=== PATIENT | male | born 1960 | race Caucasian/White ===

== ENCOUNTER 2022-01-23 02:21 | Day surgery (SDC) | payer BC, SELFPAY ==
[2022-01-04 14:44] VITALS: BMI 26.6
[2022-01-23 12:10] LABS: Glucose Point of Care 146 mg/dl (65-105)
[2022-01-23 12:13] VITALS: BP 145/80; PULSE 75; RESP 16; TEMP 36.2; O2SAT 100; BMI 27.1
--- NOTE | 2022-01-23 12:17 | WPDANESEPPF ---
Anes - Initial Pre Proc Eval Procedure: Operation Date: 01/23/22 13:30 Proposed Procedures p Esophagogastroduodenoscopy & Colonoscopy - Hero Stewart MD Date/Time: 01/23/22 12:17 Surgeon: Hero Stewart MD Pre Op Diagnosis: MERT and weight loss Patient Data Age: 61 Gender: M Height: 1.73 m Weight: 80.9 kg Last Vital Signs Temp 97.1 F L 01/23/22 12:13 Pulse 75 01/23/22 12:13 Resp 16 01/23/22 12:13 BP 145/80 H 01/23/22 12:13 Pulse Ox 100 01/23/22 12:13 O2 Del Method Room Air 01/23/22 12:13 Allergies Allergy/AdvReac Type Severity Reaction Status Date / Time No Known Allergies Allergy Mild Verified 01/23/22 12:12 Home Medications Medication Instructions Recorded Confirmed Type glimepiride 2 mg tablet 2 mg PO BID #180 tabs 08/12/21 01/11/22 Rx metformin 500 mg tablet,extended 2,000 mg PO DAILY #360 tabs 08/12/21 01/11/22 Rx release 24 hr amlodipine 10 mg tablet 10 mg PO DAILY #90 tabs 09/06/21 01/11/22 Rx levothyroxine 150 mcg tablet 150 mcg PO DAILY #90 tabs 10/10/21 01/11/22 Rx atorvastatin 20 mg tablet 20 mg PO DAILY #90 tabs 10/16/21 01/11/22 Rx metoprolol succinate 50 mg 50 mg PO DAILY #90 tabs 10/24/21 01/11/22 Rx tablet,extended release 24 hr irbesartan 300 mg tablet 300 mg PO DAILY #90 tabs 11/23/21 01/11/22 Rx cyanocobalamin (vitamin B-12) 1,000 mcg subcut .[id number] #2 vials 01/10/22 01/23/22 Rx 1,000 mcg/mL injection solution Laboratory Tests 01/23/22 12:07 POC Capillary Glucose 146 mg/dl H mg/dl (65-105) Patient hx anesthesia problems: none Family hx anesthesia problems: none Results Review: All pre-operative results and documents have been reviewed as part of the pre-operative evaluation. [facility] Past Medical History Medical History (Updated 12/01/21 @ 13:39 by Hero Stewart MD) Abdominal discomfort History of lymphoma History of thyroid irradiation 2002 Thyroid lymphoma Low vitamin B12 level Pancytopenia Family History Family History Other Pernicious anemia Social History Social History Smoking status: Never smoker Tobacco type: cigarettes Second hand tobacco smoke exposure: No Alcohol intake: never Substance use: never Substance use type: does not use Living arrangements: with family Gender identity (if verbalized by the patient): Male Sexual Orientation (if Verbalized by the Patient): Straight or Heterosexual Spiritual care concerns: No Agree to blood products: Yes Anes - Eval Final PreProcedure Day of Procedure 01/23/22 12:17 Patient weight: normal Heart: regular rate and rhythm Lungs: clear to auscultation Airway: Mallampati scale class II Neurological: alert and oriented Last oral intake: >/= 8 hours ASA classification: III Emergent: no Anesthetic plan: proceed Anesthesia type and monitoring: general GIVS and standard monitoring Results Review: All pre-operative results and documents have been reviewed as part of the pre-operative evaluation. Informed Consent: The patient's anesthetic plan and its attendant risks and benefits were discussed with the patient/family/POA. Questions were solicited and answers provided to the satisfaction of the patient/family/POA.
[2022-01-23] MEDS: LACTATED RINGERS 1,000 ML 150 ML IV CONT (12:21)
--- NOTE | 2022-01-23 13:31 | PM.HPGS ---
History of Present Illness History of Present Illness Consent: Risks, benefits, and alternatives have been discussed and questions answered. Patient agrees to proceed with procedure. Chief complaint: MERT and weight loss Narrative: Danny Flores is a 61 year old male here for egd and colonoscopy (never had), he came originally to the office with weakness, fatigue, abdominal discomfort, also decrease appetite and lost few pounds. Blood work by primary showed pancytopenia with low B12.?Treated with B12 and blood work with symptoms improved. He also has remote history of thryoid lymphoma. He is going to see hem-onc next week. Review of Systems Constitutional: Constitutional: Denies headache(s) Eyes: Eyes: Denies blurry vision ENT: Reports Normal hearing present, Denies headache(s) and Denies neck pain Cardiovascular: Cardiovascular: Denies chest pain and Denies dyspnea Respiratory: Respiratory: Denies dyspnea Gastrointestinal: Gastrointestinal: Reports no additional gastrointestinal complaints Genitourinary: Genitourinary: Denies dysuria Musculoskeletal: Musculoskeletal: Denies neck pain Integumentary/Breasts: Skin/Breast: Denies dry skin Neurologic: Reports Normal hearing present, Denies headache(s) and Denies weakness Psychiatric: Psychiatric: Denies anxiety Endocrine: Endocrine: Denies change in body appearance Hematologic/Lymphatic: Hematologic/Lymphatic: Denies easy bleeding Allergic/Immunologic: Allergic/Immunologic: Denies urticaria PMFSH Past Medical History Medical History (Updated 12/01/21 @ 13:39 by Hero Stewart MD) Abdominal discomfort History of lymphoma History of thyroid irradiation 2002 Thyroid lymphoma Low vitamin B12 level Pancytopenia Family History Family History Other Pernicious anemia Social History Social History Smoking status: Never smoker Tobacco type: cigarettes Second hand tobacco smoke exposure: No Alcohol intake: never Substance use: never Substance use type: does not use Living arrangements: with family Gender identity (if verbalized by the patient): Male Sexual Orientation (if Verbalized by the Patient): Straight or Heterosexual Spiritual care concerns: No Agree to blood products: Yes Meds Home Medications and Allergies Home Medications Medication Instructions Recorded Confirmed Type glimepiride 2 mg tablet 2 mg PO BID #180 tabs 08/12/21 01/11/22 Rx metformin 500 mg tablet,extended 2,000 mg PO DAILY #360 tabs 08/12/21 01/11/22 Rx release 24 hr amlodipine 10 mg tablet 10 mg PO DAILY #90 tabs 09/06/21 01/11/22 Rx levothyroxine 150 mcg tablet 150 mcg PO DAILY #90 tabs 10/10/21 01/11/22 Rx atorvastatin 20 mg tablet 20 mg PO DAILY #90 tabs 10/16/21 01/11/22 Rx metoprolol succinate 50 mg 50 mg PO DAILY #90 tabs 10/24/21 01/11/22 Rx tablet,extended release 24 hr irbesartan 300 mg tablet 300 mg PO DAILY #90 tabs 11/23/21 01/11/22 Rx cyanocobalamin (vitamin B-12) 1,000 mcg subcut .[id number] #2 vials 01/10/22 01/23/22 Rx 1,000 mcg/mL injection solution Allergies Allergy/AdvReac Type Severity Reaction Status Date / Time No Known Allergies Allergy Mild Verified 01/23/22 12:12 Vital Signs Vital Signs - 24 hr 01/23/22 12:13 Temperature 97.1 F L Pulse Rate 75 Respiratory Rate 16 Blood Pressure 145/80 H Pulse Oximetry 100 Oxygen Delivery Room Air Exam Const: General: comfortable and no acute distress HENMT: General nose exam: Normal nares present Eyes: General: appearance normal, both eyes and all related structures Neck: Neck: no JVD Resp: Auscultation: clear to auscultation bilaterally Cardio: Rate: regular rate Rhythm: regular rhythm GI: Inspection: non-distended GI Palp: Yes Soft to palpation Skin: General skin exam: normal color Neuro: General: gait nor
[2022-01-23 14:05] VITALS: BP 108/67; PULSE 70; RESP 19; O2SAT 98
[2022-01-23 14:15] VITALS: BP 127/73; PULSE 63; RESP 22; O2SAT 96
[2022-01-23 14:25] VITALS: BP 138/85; PULSE 66; RESP 20; O2SAT 100
== END 2022-01-23 14:36 | disposition home or self-care (01) ==
PROVIDERS: PCP Family Medicine Adolescent Medicine; Visit Provider Internal Medicine Gastroenterology
PROC: 0DJ08ZZ Inspection of Upper Intestinal Tract, Via Natural or Artificial Opening Endoscopic (ICD-10-PCS; CPT 43235; principal; 2022-01-23 13:30)
DX: Z12.11 Encounter for screening for malignant neoplasm of colon (principal); D12.3 Benign neoplasm of transverse colon; K63.5 Polyp of colon; D50.0 Iron deficiency anemia secondary to blood loss (chronic); K29.50 Unspecified chronic gastritis without bleeding; K31.A0 Gastric intestinal metaplasia, unspecified; K57.30 Diverticulosis of large intestine without perforation or abscess without bleeding; K64.8 Other hemorrhoids; R10.30 Lower abdominal pain, unspecified; R63.4 Abnormal weight loss; R53.83 Other fatigue; Z85.72 Personal history of non-Hodgkin lymphomas; D61.818 Other pancytopenia; D51.9 Vitamin B12 deficiency anemia, unspecified; E03.9 Hypothyroidism, unspecified; Z79.84 Long term (current) use of oral hypoglycemic drugs
CPT/HCPCS: 45385; 43239; 82948; 88305; J2704; J7120

== ENCOUNTER 2023-12-04 15:07 | Outpatient (CLI) | payer OTHER, SELFPAY ==
--- NOTE | ~2023-12-04 | CT_ITS ---
Non-contrast CT scan of the Abdomen and Pelvis Clinical indication: Epigastric pain Technique: 2.5 mm axial scans were obtained through the abdomen and pelvis without intravenous or or al contrast. Dose reduction technique was used on this scan by utilizing automated exposure control a nd iterative reconstruction technique. The dose-length product (DLP) was 775.74 mGy-cm. Findings: Images through the lung bases reveal no abnormalities. There is no evidence of renal or ureteral calculi. The kidneys and the ureters are nondilated. The liver, spleen, pancreas, and adrenals appear normal. Gallstones are present. There is a 7 mm gall stone in the distal common bile duct (axial image 54), with dilated common bile duct upstream, dilate d to 12 mm. There are atherosclerotic calcifications of the aorta. Infrarenal abdominal aorta is foca lly dilated to 3.3 cm. There is no evidence of bowel obstruction. Images through the pelvis were performed. There is no evidence of ascites or lymphadenopathy. Urinary bladder unremarkable. No pelvic mass seen. Small to moderate fat-containing left inguinal hernia pre sent. Impression: Choledocholithiasis with dilated common bile duct and 7 mm hyperdense stone in the distal common bile duct. Cholelithiasis. 3.3 cm infrarenal abdominal aortic aneurysm. Small to moderate fat-containing left inguinal hernia. Reviewed, dictated and finalized at [facility]. Impression: Choledocholithiasis with dilated common bile duct and 7 mm hyperdense stone in the distal common bile duct. Cholelithiasis. 3.3 cm infrarenal abdominal aortic aneurysm. Small to moderate fat-containing left inguinal hernia.
== END 2023-12-04 15:08 ==
PROVIDERS: PCP Family Medicine Adolescent Medicine; Visit Provider Family Medicine Adolescent Medicine
DX: R10.13 Epigastric pain (principal); R17 Unspecified jaundice; I71.43 Infrarenal abdominal aortic aneurysm, without rupture; K40.90 Unilateral inguinal hernia, without obstruction or gangrene, not specified as recurrent; K80.20 Calculus of gallbladder without cholecystitis without obstruction
CPT/HCPCS: 74176

== ENCOUNTER 2023-12-05 14:07 | Inpatient (IN) | payer OTHER, SELFPAY ==
[2023-12-05] VITALS (8 sets, daily range): BP systolic 134–163; BP diastolic 68–82; PULSE 66–84; RESP 14–23; TEMP 36.1–36.4; O2SAT 97–100; BMI 29.2
--- NOTE | ~2023-12-05 | XR_ITS ---
EXAMINATION: XR ERCP DATE: 12/06/2023 14:05 INDICATION: Choledocholithiasis. TECHNIQUE: 4 spot fluoroscopic images of the right upper quadrant were obtained during endoscopic ret rograde cholangiopancreatography (ERCP). Fluoroscopy exposure time was 160 seconds. COMPARISON: CT abdomen and pelvis 12/04/2023 FINDINGS: The endoscope is in the second portion of the duodenum. There is contrast opacification of the common duct, which is dilated. IMPRESSION: 1. Dilated common duct. Please refer to the ERCP procedure note for additional details. Reviewed, dictated and finalized at location A.
--- NOTE | 2023-12-05 15:08 | ED.ABDPAIN ---
HPI - Abdominal Pain General Chief Complaint: Abdominal Pain <Iker Mccarthy APRN - Last Filed: 12/05/23 15:11> Stated Complaint: REPORT TO THE ED <Iker Mccarthy APRN - Last Filed: 12/05/23 15:11> Time Seen by Provider: 12/05/23 16:18 <Iker Mccarthy APRN - Last Filed: 12/05/23 15:11> Focused HPI: GENERAL: Well-appearing, well-nourished, and in no acute distress. HEAD: Normocephalic, atraumatic, scleral icterus. CHEST: Clear to auscultation. No respiratory distress. HEART: Regular rate and rhythm. NEURO: Alert and oriented x3. ABD: upper abd. tenderness Patient screened in triage and initial orders placed. Additional care and disposition to be based upon diagnostic testing and treatment. 63-year-old male history of dyslipidemia, diabetes, hypertension, hypothyroidism presents to the emergency room for evaluation and possible surgical treatment of upper abdominal pain that he has been experiencing for 3-4 weeks. Patient states the pain is colicky is accompanying nausea. Patient states that he is of noticed ?a yellowing of his eyes and skin . Also reports dark urine. The patient was seen at his PCP recently for a CT scan showed choledocholithiasis with a 7 mm stone. <Iker Mccarthy APRN - Last Filed: 12/05/23 15:11> Related Data Allergies/Adverse Reactions: Allergies Allergy/AdvReac Type Severity Reaction Status Date / Time No Known Allergies Allergy Mild Verified 11/29/23 13:53 <Iker Mccarthy APRN - Last Filed: 12/05/23 15:11> Review of Systems Review of Systems: All systems reviewed & are unremarkable except as noted in HPI and below <Shaheen Smith MD - Last Filed: 12/05/23 20:49> PMFSH Past Medical History Medical History: Medical History Abdominal discomfort History of lymphoma History of thyroid irradiation 2002 Thyroid lymphoma Pancytopenia <Iker Mccarthy APRN - Last Filed: 12/05/23 15:11> Family History Family History: Family History Other Pernicious anemia <Iker Mccarthy APRN - Last Filed: 12/05/23 15:11> Social History Social History: Social History Smoking packs per day: 1 Smoking cigarettes per day: 20.0 Years smoked: 31 Smoking pack-years: 31.00 Smoking status: Former smoker Tobacco type: cigarettes Second hand tobacco smoke exposure: No Alcohol intake: never Substance use: never Substance use type: does not use Living arrangements: with family Occupation/Education: occupation Gender identity (if verbalized by the patient): Male Sexual Orientation (if Verbalized by the Patient): Straight or Heterosexual Spiritual care concerns: No Agree to blood products: Yes <Iker Mccarthy APRN - Last Filed: 12/05/23 15:11> Exam Narrative: APPEARANCE: Well appearing, no pain, no distress, well-nourished. HEAD: normocephalic, atraumatic. EYES: PERRLA/EOMI, conjunctivae clear. NOSE: Normal no drainage EARS:TMS clear with good light reflex. THROAT: Pharynx clear, no exudate. NECK: Supple. No adenopathy, no masses. RESPIRATORY: Airway patent, respirations nonlabored. Clear to auscultation bilaterally, no rales, rhonchi, wheezing. CARDIOVASCULAR: Regular rate and rhythm without murmurs rubs or gallops. ABDOMINAL: Soft, nontender, nondistended, normal bowel sounds MUSCULOSKELETAL: Moves all extremities. Strength/ROM intact, No edema, No calf tenderness. NEURO: Alert. Cranial nerves II through XII intact. Grossly intact SKIN: Jaundiced <Shaheen Smith MD - Last Filed: 12/05/23 20:49> Course Vital Signs Vital signs: Vital Signs Temperature 97.6 F 12/05/23 14:11 Pulse Rate 84 12/05/23 14:11 Respiratory Rate 16 12/05/23 14:11 Blood Pressure 136/73 12/05/23 14:11 Pulse Oximetry 99 12/05/23 14:11
[2023-12-05 15:27] LABS: Basophils Percent Auto 0.5 % (0.2-1.2); Eosinophils Absolute Auto 0.3 K/mm3 (0-0.3); Eosinophils Percent Auto 2.8 % (0-4.4); Hematocrit 42.2 % (42.0-52.0); Hemoglobin 13.8 g/dL (14.0-18.0); Immature Granulocyte Absolute 0.05 K/mm3 (0.00-0.031); Immature Granulocyte Percent A 0.6 % (0-0.5); Lymphocytes Percent Auto 13.5 % (18.3-44.2); Mean Corpuscular HGB Conc 32.7 g/dl (32-36); Mean Corpuscular Hemoglobin 29.5 pg (26-34); Mean Corpuscular Volume 90.2 fl (80-100); Mean Platelet Volume 10.6 fl (7.4-10.4); Monocytes Absolute Auto 0.6 K/mm3 (0.1-0.6); Neutrophils Absolute Auto 6.7 K/mm3 (1.3-6.7); Neutrophils Percent Auto 75.6 % (45.5-73.1); Platelet Count Result 413 k/mm3 (150-375); Red Blood Count 4.68 M/mm3 (4.6-6.20); Red Cell Distribution Width 15.2 % (11.5-14.5); White Blood Count 8.9 K/mm3 (4.5-10.0)
[2023-12-05 15:33] LABS: Appearance Urine Clear (Clear); Bacteria Urine None Seen /hpf; Bilirubin Urine 2+ (Negative); Blood Urine Negative (Negative); Color Urine Dark Yellow (Yellow); Glucose Urine UA Negative (Negative); Ketones Urine Negative (Negative); Leukocyte Esterase Ur Negative LEU/UL (Negative); Nitrate Urine Negative (Negative); Protein Urine Trace mg/dL (Negative); RBC Urine 0-2 /hpf (0-2); Specific Grav Ur 1.009 (1.001-1.035); Squamous Epithelial Cell Urine Occasional /hpf (Few); WBC Urine 0-5 /hpf (0-3); pH Urine 5.5 (5.0-9.0)
[2023-12-05 15:49] LABS: Add Urine Microscopic? YES
[2023-12-05 16:22] LABS: Lactic Acid Reflex 1.2 mmol/L (0.7-2.0)
[2023-12-05 16:24] LABS: Alanine Aminotransferase 253 U/L (6-50); Albumin Level 4.1 g/dL (3.5-5.1); Alkaline Phosphatase 280 U/L (38-126); Anion Gap 10 mmol/L (4-12); Aspartate Amino Transferase 176 U/L (17-59); Bilirubin,Total 8.4 mg/dL (0.2-1.3); Blood Urea Nitrogen 25 mg/dL (9-20); Calcium 9.4 mg/dL (8.4-10.2); Carbon Dioxide 23 mmol/L (22-30); Chloride 101 mmol/L (98-107); Estimated CRCL calculation 54 ml/min; Estimated Glomerular Filt Rate > 60; Glucose 232 mg/dL (65-110); Potassium 4.3 mmol/L (3.4-5.0); Sodium 134 mmol/L (137-145)
[2023-12-05 16:39] LABS: Lipase 3368 U/L (23-300)
--- NOTE | 2023-12-05 21:39 | ADMGEN ---
This patient, Danny Flores, was admitted to [facility] Surg Room 314-02. Patient/family oriented to hospital policies and general routines including ID bracelet, bed and alarms, visiting hours, pain management, procedures, bathroom and other care routines, personal items, smoking policy, room service/diet, and visiting hours. Information on how to activate the Rapid Response Team has been discussed. Patient/Family are encouraged to report perceived risks to care and to ask questions if they do not understand what they are told or what they should do.
[2023-12-05] MEDS: SODIUM CHLORIDE 0.9% IV 1,000 ML 125 ML IV CONT (21:57)
[2023-12-06] VITALS (9 sets, daily range): BP systolic 135–163; BP diastolic 64–78; PULSE 63–82; RESP 13–20; TEMP 36.1–36.6; O2SAT 96–100; BMI 29.2
--- NOTE | 2023-12-06 01:31 | PM.IMHP ---
H&P: HPI History of Present Illness Date/Time: 12/06/23 01:31 Chief Complaint: Jaundice, abnormal outpatient CT Narrative: 63-year-old male with a past medical history of diabetes, essential hypertension, hyperlipidemia, B12 deficiency and hypothyroidism who presented to the ER with abdominal pain and abnormal outpatient CT. The patient been having abdominal pain for 3-4 weeks status colicky in nature accompanied by nausea. The pain can be quite severe at times and has occasionally radiated through to his back. He has had 2 particularly severe episodes 1st of which occurred after he ate a salami sandwich. The 1st episode he thought was due to constipation and he received some medication for constipation which resolved his symptoms. However following that the patient developed great colored stools and dark urine for the last couple of weeks. His urine collected on 11/25 demonstrated large amount of bilirubin. His labs prior to that a demonstrated normal electrolyte panel without elevated bilirubin. The 2nd episode occurred a week or so ago and occurred with a more moderate diet. He is significantly altered his diet in order to avoid abdominal symptoms. He had also noticed that he had was becoming more yellow but he does not know exactly when he noticed the jaundice. He did his own research and suspected that he was having gallbladder difficulties. He went to his primary care physician who ordered outpatient CT of the abdomen pelvis which demonstrated a 7 mm stone in the distal common bile duct along with cholelithiasis, 3.3 cm infrarenal abdominal aortic aneurysm and small to moderate fat containing left inguinal hernia. The patient's pancreas did not demonstrate any evidence of inflammation however on labs performed in the ER the patient did have an elevated lipase 3368 with accompanying elevated bilirubin AST and ALT.. Patient's glucoses were also noted to be in the 280s. Early controlled diabetes with his last A1c in November 14 of 8.2. He has lost 16 lb in the last 3 months. He denied any associated chest pain or shortness of breath. He denies any fevers or chills. He has not had any significant nausea or vomiting just some decreased appetite with the 2 mention episodes of pain. Review of Systems Review of Systems: 12 systems were reviewed with pertinent positives and negatives per HPI. Except as documented in the HPI, all other systems were reviewed and are negative. [facility] Past Medical History Medical History (Updated 12/06/23 @ 01:46 by Sera Marr DO) B12 deficiency With associated pernicious anemia Diabetic retinopathy Diverticulosis Essential (primary) hypertension GERD (gastroesophageal reflux disease) History of thyroid irradiation 2001 Thyroid lymphoma Hyperlipidemia Internal hemorrhoids Lymphoma of thyroid gland Postablative hypothyroidism Rosacea Surgical History Surgical History (Updated 12/06/23 @ 01:42 by Sera Marr DO) History of colonoscopy with polypectomy (2021) History of esophagogastroduodenoscopy (2021) History of thyroidectomy Family History Family History Other Pernicious anemia Social History Social History (Updated 12/06/23 @ 07:01 by Sera Marr DO) Social History: He lives in [facility] with his spouse. He has 1 daughter who is receiving her PhD. He smoked for about 31 years but quit smoking about 25 years ago. At the most he smoked 1.5 packs per day. He denies any significant alcohol use or illicit substance use. He is employed as a maintenance assistant. Code status: Full code Surrogate decision maker: Katarina (spouse) Smoking packs per day: 1 Smoking cigarettes per day: 20.0 Years smoked: 31 Smoking pack-years: 31.00 Smoking status: Former smoker Tobacco type: cigarettes Second hand tobacco smoke exposure: No Alcohol intake: never Substance use: never Substance use typ
[2023-12-06] MEDS: LEVOTHYROXINE SODIUM INJ 100 MCG/5 ML VIAL 68.5 MCG IV PUSH (05:19)
[2023-12-06 05:33] LABS: Glucose Point of Care 135 mg/dl (65-105)
[2023-12-06 06:48] LABS: Hemoglobin 13.1 g/dL (14.0-18.0); Mean Corpuscular HGB Conc 32.8 g/dl (32-36); Mean Corpuscular Hemoglobin 29.4 pg (26-34); Mean Corpuscular Volume 89.7 fl (80-100); Mean Platelet Volume 10.7 fl (7.4-10.4); Platelet Count Result 382 k/mm3 (150-375); Red Blood Count 4.46 M/mm3 (4.6-6.20); Red Cell Distribution Width 15.1 % (11.5-14.5); White Blood Count 7.4 K/mm3 (4.5-10.0)
[2023-12-06 07:01] LABS: Alanine Aminotransferase 205 U/L (6-50); Albumin Level 3.7 g/dL (3.5-5.1); Alkaline Phosphatase 251 U/L (38-126); Anion Gap 8 mmol/L (4-12); Aspartate Amino Transferase 134 U/L (17-59); Bilirubin,Total 5.5 mg/dL (0.2-1.3); Blood Urea Nitrogen 18 mg/dL (9-20); Calcium 9.1 mg/dL (8.4-10.2); Carbon Dioxide 24 mmol/L (22-30); Chloride 105 mmol/L (98-107); Estimated CRCL calculation 79 ml/min; Estimated Glomerular Filt Rate > 60; Glucose 129 mg/dL (65-110); Potassium 3.7 mmol/L (3.4-5.0); Sodium 137 mmol/L (137-145)
--- NOTE | 2023-12-06 10:15 | PM.CNGS ---
Assessment and Plan Assessment and plan (1) Choledocholithiasis: Code(s): K80.50 - Calculus of bile duct without cholangitis or cholecystitis without obstruction Status: Acute Assessment and Plan: Outpatient CT scan of the abdomen and pelvis showed a 7 mm gallstone in the distal common bile duct with dilatation of the proximal common duct. Labs show a bilirubin of 8.4, as well as mildly elevated AST, ALT, and alk phos. He is afebrile and WBC count is normal. Agree with GI consultation, who has scheduled him for an ERCP today. Will continue to follow along as the patient will eventually need a laparoscopic cholecystectomy to prevent recurrence or other issues from his gallstones. Discussed the details of a laparoscopic cholecystectomy that would be done under general anesthesia. Description of the procedure, risks, benefits, alternatives, and expected recovery were discussed with the patient in detail. We discussed the risks of bile leak and bile duct injury, liver/bowel injury, bleeding, and infection. Also discussed the possibility of having to convert to an open procedure if necessary. We will plan to repeat labs again tomorrow morning and await ERCP results. We will follow along to decide timing of surgery depending on how he progresses. (2) Acute pancreatitis: Qualifiers: Acute pancreatitis complication: no infection or necrosis Pancreatitis type: biliary Qualified Code(s): K85.10 - Biliary acute pancreatitis without necrosis or infection Code(s): K85.90 - Acute pancreatitis without necrosis or infection, unspecified Status: Acute Assessment and Plan: CT suggest normal findings of pancreas, but lipase 3,000 on admission. This appears to be biliary pancreatitis with choledocholithiasis. Continue IV fluids and analgesics as needed. He is NPO for the ERCP today. Will trend labs and need to make sure the pancreatitis is resolving prior to proceeding with cholecystectomy. (3) Cholelithiasis: Code(s): K80.20 - Calculus of gallbladder without cholecystitis without obstruction Status: Acute Assessment and Plan: Cholelithiasis noted on CT. Will eventually need interval cholecystectomy. (4) Diabetes mellitus with hyperglycemia, without long-term current use of insulin: Qualifiers: Diabetes mellitus type: type 2 Qualified Code(s): E11.65 - Type 2 diabetes mellitus with hyperglycemia Code(s): E11.65 - Type 2 diabetes mellitus with hyperglycemia Status: Acute Assessment and Plan: Management per Hospitalist. Recent hgb A1C from last month was 8.2. (5) AAA (abdominal aortic aneurysm): Onset Date: 11/2023 Qualifiers: Abdominal aorta location: infrarenal aorta Presence of rupture: without rupture Qualified Code(s): I71.43 - Infrarenal abdominal aortic aneurysm, without rupture Code(s): I71.40 - Abdominal aortic aneurysm, without rupture, unspecified Status: Acute Assessment and Plan: Found on CT measuring 3.3 cm. (6) Elevated LFTs: Code(s): R79.89 - Other specified abnormal findings of blood chemistry Status: Acute Assessment and Plan: Obstructive jaundice with a bilirubin of 8.4 likely caused by the common bile duct stone, GI following and planning ERCP today, trend labs. (7) Left inguinal hernia: Code(s): K40.90 - Unilateral inguinal hernia, without obstruction or gangrene, not specified as recurrent Status: Chronic Assessment and Plan: Small to moderate sized left inguinal hernia containing fat on CT. He is asymptomatic and this is not the reason for his admission. He could follow-up as an outpatient to discuss treatment options if he wishes after his acute issues are treated, which I discussed with the patient. Plan I have discussed the patient's case and plan of care with Dr. Tanner. Thank you for allowing us to see the patient in consultation and we will continue to follow al
[2023-12-06 11:34] LABS: Glucose Point of Care 118 mg/dl (65-105)
[2023-12-06] MEDS: LACTATED RINGERS 1,000 ML 150 ML IV CONT (11:38)
--- NOTE | 2023-12-06 11:39 | WPDANESEPPF ---
Anes - Initial Pre Proc Eval Procedure: Operation Date: 12/06/23 12:45 Proposed Procedures p Endoscopic Retro Cholangiopancreatogram - Hero Stewart MD Date/Time: 12/06/23 11:39 Surgeon: Sera Marr DO Pre Op Diagnosis: Choledocholithiasis Patient Data Age: 63 Gender: M Height: 1.73 m Weight: 87.1 kg Last Vital Signs Temp 96.9 F L 12/06/23 11:31 Pulse 64 12/06/23 11:31 Resp 18 12/06/23 11:31 BP 155/69 H 12/06/23 11:31 Pulse Ox 99 12/06/23 11:31 O2 Del Method Room Air 12/06/23 11:31 Allergies Allergy/AdvReac Type Severity Reaction Status Date / Time No Known Allergies Allergy Mild Verified 11/29/23 13:53 Home Medications Medication Instructions Recorded Confirmed Type amlodipine 10 mg tablet See Rx Instructions .Route 08/20/23 12/05/23 Rx .COMPLEX #90 tabs levothyroxine 137 mcg tablet 137 mcg PO DAILY #90 tabs 08/26/23 12/05/23 Rx atorvastatin 20 mg tablet 20 mg PO DAILY #90 tabs 08/27/23 12/05/23 Rx glimepiride 2 mg tablet 2 mg PO BID #180 tabs 08/27/23 12/05/23 Rx irbesartan 300 mg tablet 300 mg PO DAILY #90 tabs 08/27/23 12/05/23 Rx metoprolol succinate 50 mg 50 mg PO DAILY #90 tabs 08/27/23 12/05/23 Rx tablet,extended release 24 hr cyanocobalamin (vitamin B-12) 1,000 mcg subcut .s3fmyde #2 vials 11/20/23 12/05/23 Rx 1,000 mcg/mL injection solution pioglitazone 45 mg tablet 45 mg PO DAILY #90 tabs 11/20/23 12/05/23 Rx syringe with needle 3 mL 25 gauge #2 ea 11/20/23 12/06/23 Rx x 1 (BD Luer-Adalberto Syringe) metformin 500 mg tablet,extended 2,000 mg PO BID 12/05/23 12/05/23 History release 24 hr Laboratory Tests 12/05/23 12/05/23 12/06/23 15:13 15:20 05:30 WBC 8.9 K/mm3 (4.5-10.0) RBC 4.68 M/mm3 (4.6-6.20) Hgb 13.8 L g/dL (14.0-18.0) Hct 42.2 % (42.0-52.0) MCV 90.2 fl (80-100) MCH 29.5 pg (26-34) MCHC 32.7 g/dl (32-36) RDW 15.2 H % (11.5-14.5) Plt Count 413 H k/mm3 (150-375) MPV 10.6 H fl (7.4-10.4) Immature Gran % (Auto) 0.6 H % (0-0.5) Neut % (Auto) 75.6 H % (45.5-73.1) Lymph % (Auto) 13.5 L % (18.3-44.2) Russell % (Auto) 7.0 % (2.6-8.5) Eos % (Auto) 2.8 % (0-4.4) Baso % (Auto) 0.5 % (0.2-1.2) Lymph # (Auto) 1.20 K/mm3 (0.9-3.2) Russell # (Auto) 0.6 K/mm3 (0.1-0.6) Eos # (Auto) 0.3 K/mm3 (0-0.3) Baso # (Auto) 0.0 K/mm3 (0.0-0.1) Abs Immat Gran (auto) 0.05 H K/mm3 (0.00-0.031) Absolute Neuts (auto) 6.7 K/mm3 (1.3-6.7) Absolute Nucleated RBC 0.000 K/mm3 (0.0-0.012) Nucleated RBC % 0.0 % (0.0-0.2) Sodium 134 L mmol/L (137-145) Potassium 4.3 mmol/L (3.4-5.0) Chloride 101 mmol/L (98-107) Carbon Dioxide 23 mmol/L (22-30) Anion Gap 10 mmol/L (4-12) BUN 25 H mg/dL (9-20) Creatinine 1.20 mg/dL (0.7-1.3) Estim Creat Clear Calc 54 ml/min Estimated GFR > 60 (59 - ) Glucose 232 H mg/dL (65-110) POC Capillary Glucose 135 H mg/dl (65-105) Lactic Acid 1.2 mmol/L (0.7-2.0) Calcium 9.4 mg/dL (8.4-10.2) Total Bilirubin 8.4 H mg/dL (0.2-1.3) AST 176 H U/L (17-59) ALT 253 H U/L (6-50) Alkaline Phosphatase 280 H U/L (38-126) Total Protein 8.0 g/dL (6.3-8.2) Albumin 4.1 g/dL (3.5-5.1) Lipase 3368 H U/L (23-300) Urine Color Dark yellow (Yellow) Urine Appearance Clear (Clear) Urine pH 5.5 (5.0-9.0) Ur Specific [place] 1.009 (1.001-1.035) Urine Protein Trace mg/dL (Negative) Urine Glucose (UA) Negative mg/dL (Negative) Urine Ketones Negative mg/dL (Negative)
--- NOTE | 2023-12-06 13:03 | WPDGICN ---
Assessment and Plan Assessment and plan (1) Choledocholithiasis: Code(s): K80.50 - Calculus of bile duct without cholangitis or cholecystitis without obstruction Status: Acute Assessment and Plan: this can explain findings and symptoms here with obstructive jaundice with bile duct stone and also GS pancreatitis will proceed with ERCP based on findings, try to remove stone and then will need cholecystectomy by surgery (2) Gallstone pancreatitis: Code(s): K85.10 - Biliary acute pancreatitis without necrosis or infection Status: Acute Assessment and Plan: npo ercp today to remove stone (3) Obstructive jaundice: Code(s): K83.1 - Obstruction of bile duct Status: Acute Assessment and Plan: expect that if remove stent this will improve surgery on board (4) Elevated LFTs: Code(s): R79.89 - Other specified abnormal findings of blood chemistry Status: Acute Assessment and Plan: trend liver enzymes (5) Diabetes mellitus with hyperglycemia, without long-term current use of insulin: Qualifiers: Diabetes mellitus type: type 2 Qualified Code(s): E11.65 - Type 2 diabetes mellitus with hyperglycemia Code(s): E11.65 - Type 2 diabetes mellitus with hyperglycemia Status: Acute (6) Cholelithiasis: Code(s): K80.20 - Calculus of gallbladder without cholecystitis without obstruction Status: Acute (7) Epigastric abdominal pain: Code(s): R10.13 - Epigastric pain Status: Acute GI Consult Note Consult date/time: 12/06/23 13:03 Reason for consult: obstructive jaundice, choledocholithiasis HPI: Danny Flores is a 63 year old male with history of type 2 diabetes mellitus, hypertension, hyperlipidemia, B12 deficiency, and hypothyroidism here with progressive abdominal pain for last 3-4 weeks, initially he thought could have been related to constipation.? He then developed dark urine, PCP performed UA negative for infection but also noted cat-colored stools. His abdominal pain worsened and noted icteric sclerae. He was seen in his doctor office on 11/29/2023.? Outpatient CT scan of the abdomen and pelvis showed cholelithiasis with a 7 mm gallstone in the distal common bile duct that is dilated upstream to 12 mm.? Also noted is a 3.3 cm infrarenal abdominal aortic aneurysm, and small to moderate fat containing left inguinal hernia.?PCP advised patient to come to ER. Labs in the ER showed a white blood cell count of 8900, BUN 25, creatinine 1.2, glucose 232, lactic acid 1.2, total bilirubin 8.4, AST 136, ALT 253, alk-phos 280, and lipase 3368.? Review of Systems Review of Systems: All systems reviewed & are unremarkable except as noted in HPI and below Constitutional: Constitutional: Reports as per HPI, Reports no additional constitutional complaints, Reports chills, Denies fever(s), Reports poor appetite and Reports weight loss Eyes: Eyes: Reports no additional eye complaints ENT: Reports system reviewed and no additional complaints, except as documented, Denies dizziness and Denies headache(s) Cardiovascular: Cardiovascular: Reports no additional cardiovascular complaints and Denies chest pain Respiratory: Respiratory: Reports no additional respiratory complaints and Denies cough Gastrointestinal: Gastrointestinal: Reports as per HPI, Reports no additional gastrointestinal complaints, Reports abdominal pain, Denies melena and Reports other (Light, cat colored stools) Genitourinary: Genitourinary: Reports no additional male genitourinary complaints, Denies dysuria and Reports other (Dark urine) Musculoskeletal: Musculoskeletal: Reports no additional musculoskeletal complaints, Denies abnormal gait and Denies joint swelling Integumentary/Breasts: Skin/Breast: Reports system reviewed and no additional complaints, except as docu Neurologic: Reports system reviewed and no additional complaints, except as documented, Denies
[2023-12-06] MEDS: INDOMETHACIN 50 MG SUPP.RECT RECTAL (13:29)
--- NOTE | 2023-12-06 15:05 | PM.IMPN ---
Progress Note: A&P Assessment and Plan (1) Choledocholithiasis: Code(s): K80.50 - Calculus of bile duct without cholangitis or cholecystitis without obstruction Status: Acute Assessment and Plan: CTA showed choledocholithiasis with dilated common bile duct and 7 mm hyperdense stone in the distal common bile duct GI following - ERCP today to remove stone gen surgery consulted - will need cholecystectomy by surgery when appropriate Bilirubin 5 5 AST/ALT: 134/205 Alk phos: 251 (2) Acute pancreatitis: Qualifiers: Acute pancreatitis complication: no infection or necrosis Pancreatitis type: biliary Qualified Code(s): K85.10 - Biliary acute pancreatitis without necrosis or infection Code(s): K85.90 - Acute pancreatitis without necrosis or infection, unspecified Status: Acute Assessment and Plan: acute pancreatitis due to choledocholithiasis with associated jaundice and transaminitis. GI consulted - ERCP today to remove stone General surgery - following and monitoring (3) AAA (abdominal aortic aneurysm): Onset Date: 11/2023 Qualifiers: Abdominal aorta location: infrarenal aorta Presence of rupture: without rupture Qualified Code(s): I71.43 - Infrarenal abdominal aortic aneurysm, without rupture Code(s): I71.40 - Abdominal aortic aneurysm, without rupture, unspecified Status: Acute Assessment and Plan: CTA showed 3.3 cm infrarenal abdominal aortic aneurysm (4) Diabetes mellitus with hyperglycemia, without long-term current use of insulin: Qualifiers: Diabetes mellitus type: type 2 Qualified Code(s): E11.65 - Type 2 diabetes mellitus with hyperglycemia Code(s): E11.65 - Type 2 diabetes mellitus with hyperglycemia Status: Chronic Assessment and Plan: moderate dose sliding scale insulin with Accu-Cheks q.6 hours hypoglycemia protocol (5) Essential (primary) hypertension: Code(s): I10 - Essential (primary) hypertension Status: Chronic Assessment and Plan: IV hydralazine p.r.n. Continue to monitor while NPO Subjective Date/time seen: 12/06/23 15:05 Interval history: Patient sitting up in bed no acute distress. He had his ERCP this afternoon. GI is following as well as General surgery. We will let him have a full liquid diet tonight and make NPO at midnight in case surgery proceed tomorrow. Will monitor labs and clinical picture. Review of Systems Review of Systems: All systems reviewed & are unremarkable except as noted in HPI and below Exam Narrative: GEN: Well appearing, no pain, no distress, well-nourished. HEAD: normocephalic, atraumatic. EYES: PERRLA/EOMI NECK: Supple. RESPIRATORY: Lungs clear to auscultation bilaterally, no rales, rhonchi, wheezing. CARDIOVASCULAR: RRR ABDOMINAL: Soft, nontender, nondistended, normal bowel sounds. SKIN: Jaundiced appearance, no rashes, wounds or lesions MUSCULOSKELETAL: Moves all extremities. Strength/ROM intact, No edema NEURO: Alert and oriented x3. Cranial nerves II through XII intact. Grossly intact PSYCH: Pleasant and cooperative Objective Data Vital Signs Vital Signs: Vital Signs - 24 hr 12/05/23 16:20 12/05/23 16:24 12/05/23 17:01 Temperature Pulse Rate 79 66 78 Respiratory Rate 22 H 18 18 Blood Pressure 146/79 H 146/68 H 149/75 H Pulse Oximetry 99 98 100 Oxygen Delivery Oxygen Flow Rate 12/05/23 18:01 12/05/23 18:02 12/05/23 19:44 Temperature Pulse Rate 76 78 82 Respiratory Rate 19 23 H 16 Blood Pressure 163/80 H 163/80 H 138/82 Pulse Oximetry 99 99 97 Oxygen Delivery Oxygen Flow Rate 12/05/23 22:00 12/05/23 21:33 12/06/23 05:09 Temperature 96.9 F L 97.8 F Pulse Rate 68 70 Respiratory Rate 14 13 Blood Pressure 134/72 152/67 H Pulse Oximetry 100 96 Oxygen Delivery Room Air Oxygen Flow Rate 12/06/23 08:00 12/06/23 11:31 12/06/23 14:06 Temperatu
[2023-12-06 19:23] LABS: Glucose Point of Care 289 mg/dl (65-105)
[2023-12-07] VITALS (14 sets, daily range): BP systolic 143–188; BP diastolic 65–92; PULSE 69–93; RESP 12–20; TEMP 36.4–36.7; O2SAT 92–100
[2023-12-07] MEDS: LEVOTHYROXINE SODIUM INJ 100 MCG/5 ML VIAL 68.5 MCG IV PUSH (05:40)
[2023-12-07] MEDS: SODIUM CHLORIDE 0.9% IV 1,000 ML 150 ML IV CONT ×4 (05:41→21:59)
[2023-12-07 06:05] LABS: Hemoglobin 13.5 g/dL (14.0-18.0); Mean Corpuscular HGB Conc 32.1 g/dl (32-36); Mean Corpuscular Volume 90.3 fl (80-100); Mean Platelet Volume 10.6 fl (7.4-10.4); Platelet Count Result 424 k/mm3 (150-375); Red Blood Count 4.65 M/mm3 (4.6-6.20)
[2023-12-07 06:14] LABS: Alanine Aminotransferase 178 U/L (6-50); Albumin Level 3.7 g/dL (3.5-5.1); Alkaline Phosphatase 267 U/L (38-126); Anion Gap 5 mmol/L (4-12); Aspartate Amino Transferase 111 U/L (17-59); Blood Urea Nitrogen 14 mg/dL (9-20); Calcium 8.9 mg/dL (8.4-10.2); Carbon Dioxide 26 mmol/L (22-30); Chloride 108 mmol/L (98-107); Estimated CRCL calculation 89 ml/min; Estimated Glomerular Filt Rate > 60; Glucose 166 mg/dL (65-110); Lipase 831 U/L (23-300); Potassium 4.4 mmol/L (3.4-5.0); Sodium 139 mmol/L (137-145)
[2023-12-07 06:15] LABS: Prothrombin Time 13.4 Seconds (11.1-14.7)
--- NOTE | 2023-12-07 09:44 | WPDANESPN ---
Anes - Prog Note Post-Op Date/Time: 12/07/23 09:44 Cardiovascular status: normal Respiratory status: normal Airway patency: baseline Mental status: baseline Post-Op hydration status: normal Vital Signs: Last Vital Signs Temp 36.4 C L 12/07/23 05:32 Pulse 69 12/07/23 05:32 Resp 16 12/07/23 05:32 BP 162/65 H 12/07/23 05:32 Pulse Ox 99 12/07/23 05:32 O2 Del Method Room Air 12/07/23 08:00 O2 Flow Rate 10 12/06/23 14:06 Pain Score (VAS): 0/10 I/O: Intake & Output 12/06/23 12/07/23 12/07/23 23:59 07:59 15:59 Intake Total 1120 852.5 Output Total 2050 Balance 1120 -1197.5 Laboratory Tests 12/07/23 05:33 12/07/23 05:33 12/06/23 12/06/23 12/07/23 11:32 19:18 05:33 WBC 9.0 RBC 4.65 Hgb 13.5 L Hct 42.0 MCV 90.3 MCH 29.0 MCHC 32.1 RDW 15.0 H Plt Count 424 H MPV 10.6 H PT 13.4 INR 1.0 Sodium 139 Potassium 4.4 Chloride 108 H Carbon Dioxide 26 Anion Gap 5 BUN 14 Creatinine 0.70 Estim Creat Clear Calc 89 Estimated GFR > 60 Glucose 166 H POC Capillary Glucose 118 H 289 H Calcium 8.9 Total Bilirubin 4.0 H AST 111 H ALT 178 H Alkaline Phosphatase 267 H Total Protein 7.0 Albumin 3.7 Lipase 831 H Post-procedural complaints: none Patient Feedback: Patient satisfied with anesthetic care.
--- NOTE | 2023-12-07 10:24 | WPDPN ---
Progress Note: A&P Assessment and Plan (1) Obstructive jaundice: Code(s): K83.1 - Obstruction of bile duct Status: Acute Assessment and Plan: Due to choledocholithiasis. Resolved after ERCP yesterday with sphincterotomy. Total bili was trending down and is now down to 4 from 8. He still has residual cholelithiasis. Recommend proceeding with a laparoscopic cholecystectomy possible conversion open cholecystectomy today. Risks, benefits, indications, and expected outcomes were discussed with the patient and/or family members. Specific risks to include bleeding and possible need for blood transfusion, infection, bile leak, injury to other organs, common bile duct injury, and conversion to open cholecystectomy has been discussed. I have answered all their questions and they agreed to proceed with surgery as outlined above. (2) Gallstone pancreatitis: Code(s): K85.10 - Biliary acute pancreatitis without necrosis or infection Status: Acute Assessment and Plan: Pancreatitis was very mild. Lipase is now 800. Clinically the abdomen is benign. (3) Left inguinal hernia: Code(s): K40.90 - Unilateral inguinal hernia, without obstruction or gangrene, not specified as recurrent Status: Chronic Subjective Date/time seen: 12/07/23 10:24 Interval history: Patient doing better today. Minimal if any epigastric right upper quadrant abdominal pain. Appears less jaundice. Had ERCP with sphincterotomy done yesterday by Dr. Acevedo. Debris and small gallstones removed whole common bile duct. His total bilirubin is down to 4 today. Liver enzymes are decreasing as well. White blood cell count is normal. Lipase which was 3300 is now down to 800. Clinical abdominal exam is benign. Exam GI: Other: Abdomen is soft and nondistended. Minimal to no tenderness in the right upper quadrant epigastric regions of the abdomen. Objective Data Vital Signs Vital Signs: Vital Signs - 24 hr 12/06/23 11:31 12/06/23 14:06 12/06/23 14:16 Temperature 36.1 C L 36.4 C Pulse Rate 64 80 82 Respiratory Rate 18 15 14 Blood Pressure 155/69 H 147/78 H 142/72 H Pulse Oximetry 99 100 100 Oxygen Delivery Room Air Simple Face Mask Room Air Oxygen Flow Rate 10 12/06/23 14:26 12/06/23 14:36 12/06/23 14:46 Temperature Pulse Rate 72 64 65 Respiratory Rate 16 17 17 Blood Pressure 141/68 H 135/64 155/77 H Pulse Oximetry 100 100 99 Oxygen Delivery Room Air Room Air Room Air Oxygen Flow Rate 12/06/23 14:56 12/06/23 20:12 12/06/23 20:00 Temperature 36.1 C L Pulse Rate 63 71 Respiratory Rate 20 16 Blood Pressure 163/71 H 160/72 H Pulse Oximetry 100 100 Oxygen Delivery Room Air Room Air Oxygen Flow Rate 12/07/23 05:32 12/07/23 08:00 Temperature 36.4 C L Pulse Rate 69 Respiratory Rate 16 Blood Pressure 162/65 H Pulse Oximetry 99 Oxygen Delivery Room Air Oxygen Flow Rate Intake/Output Intake/Output: Intake & Output 12/04/23 12/05/23 12/06/23 12/07/23 23:59 23:59 23:59 23:59 Intake Total 1470 852.5 Output Total 900 2050 Balance 570 -1197.5 Meds/Results Medications: Active Medications Generic Name Dose Route Start Last Admin Trade Name Freq PRN Reason Stop Dose Admin Benzocaine 1 lozenge 12/06/23 20:23 Benzocaine/Menthol (*Bkc) 18 Ea Lozenge PO PRN PRN Sore Throat Dextrose 12.5 gm 12/06/23 01:44 Dextrose 50% 25 Gm/50 Ml Syringe IV PUSH PRN PRN Hypoglycemia Protocol Glucagon 1 mg 12/06/23 01:44 Glucagon For Inj 1 Mg Vial IM PRN PRN Hypoglycemia Protocol Glucose 15 gm 12/06/23 01:44 Glucose Oral Gel 15 Gm Of Glucse In 37.5 Gm Tube PO PRN PRN Hypoglycemia Protocol Hydralazine HCl 10 mg 12/06/23 01:48 Hydralazine Hcl 20 Mg/Ml Vial IV PUSH Q4H PRN Blood Pressure - High >160 Hydromorphone HCl 0.5 mg 12/05/23 19:01 Hydromorphone Hcl Inj (*C
[2023-12-07 11:26] LABS: Glucose Point of Care 151 mg/dl (65-105)
--- NOTE | 2023-12-07 14:03 | PM.IMPN ---
Progress Note: A&P Assessment and Plan (1) Choledocholithiasis: Code(s): K80.50 - Calculus of bile duct without cholangitis or cholecystitis without obstruction Status: Acute Assessment and Plan: ERCP was done and stool possible. Patient bilirubin and liver function test are slightly better today. Clinically doubt this is decreased. Plan is to continue current treatment monitor closely. (2) Acute pancreatitis: Qualifiers: Acute pancreatitis complication: no infection or necrosis Pancreatitis type: biliary Qualified Code(s): K85.10 - Biliary acute pancreatitis without necrosis or infection Code(s): K85.90 - Acute pancreatitis without necrosis or infection, unspecified Status: Acute Assessment and Plan: acute pancreatitis due to choledocholithiasis with associated jaundice and transaminitis. GI consulted -ERCP done and stone removed. General surgery - following and monitoring (3) AAA (abdominal aortic aneurysm): Onset Date: 11/2023 Qualifiers: Abdominal aorta location: infrarenal aorta Presence of rupture: without rupture Qualified Code(s): I71.43 - Infrarenal abdominal aortic aneurysm, without rupture Code(s): I71.40 - Abdominal aortic aneurysm, without rupture, unspecified Status: Acute Assessment and Plan: CTA showed 3.3 cm infrarenal abdominal aortic aneurysm Patient preferred an outpatient to see Cardiology. (4) Diabetes mellitus with hyperglycemia, without long-term current use of insulin: Qualifiers: Diabetes mellitus type: type 2 Qualified Code(s): E11.65 - Type 2 diabetes mellitus with hyperglycemia Code(s): E11.65 - Type 2 diabetes mellitus with hyperglycemia Status: Chronic Assessment and Plan: Stable on current medications, continue current treatment. (5) Essential (primary) hypertension: Code(s): I10 - Essential (primary) hypertension Status: Chronic Assessment and Plan: Stable current medications, will continue current treatment. Plan Continue to monitor LFTs and bilirubin. Clinically improving. Full code. DVT prophylaxis is SCD boots. Subjective Date/time seen: 12/07/23 14:03 Interval history: Patient was seen during the rounds today. Patient is clinically feeling better. Decrease abdominal pain. No nausea or vomiting Less jaundice. No shortness of breath or chest pain. Review of Systems Review of Systems: 12 systems were reviewed with pertinent positives and negatives per HPI. Except as documented in the HPI, all other systems were reviewed and are negative. All systems reviewed & are unremarkable except as noted in HPI and below Exam Narrative: GEN: Well appearing, no pain, no distress, well-nourished. HEAD: normocephalic, atraumatic. EYES: PERRLA/EOMI/ Slightly yellow NECK: Supple. RESPIRATORY: Lungs clear to auscultation bilaterally, no rales, rhonchi, wheezing. CARDIOVASCULAR: RRR ABDOMINAL: Soft, mild RUQ tender, nondistended, normal bowel sounds. SKIN: Jaundiced appearance, no rashes, wounds or lesions MUSCULOSKELETAL: Moves all extremities. Strength/ROM intact, No edema NEURO: Alert and oriented x3. Cranial nerves II through XII intact. Grossly intact PSYCH: Pleasant and cooperative Const: Other: No acute distress, well-developed well-nourished, appears stated age HENMT: Other: Jaundice of the soft palate, mucous membranes are tacky, no oral pharyngeal erythema, good dentition Eyes: Other: Marked scleral icterus, no conjunctival pallor, pupils are equal and reactive Neck: Other: No JVD, no lymphadenopathy, no gross thyromegaly Resp: Other: Clear to auscultation bilaterally, no increased work of breathing Cardio: Other: Regular rate, regular rhythm, 2+ bilateral radial pedal pulses GI: Other: No significant tenderness in the right upper quadrant or epigastric region, soft,
--- NOTE | 2023-12-07 14:36 | PC.NURSE ---
Patient down to pre-op via bed.
[2023-12-07 14:55] LABS: Glucose Point of Care 141 mg/dl (65-105)
--- NOTE | 2023-12-07 15:29 | WPDGIPROGNO ---
Progress Note: A&P Assessment and Plan (1) Choledocholithiasis: Code(s): K80.50 - Calculus of bile duct without cholangitis or cholecystitis without obstruction Status: Acute Assessment and Plan: ercp yesterday, removed small stones, also obtained cytology from distal bile duct plan is to have surgery no abdominal pain (2) Gallstone pancreatitis: Code(s): K85.10 - Biliary acute pancreatitis without necrosis or infection Status: Acute (3) Obstructive jaundice: Code(s): K83.1 - Obstruction of bile duct Status: Acute (4) Elevated LFTs: Code(s): R79.89 - Other specified abnormal findings of blood chemistry Status: Acute Assessment and Plan: will expect downtrending liver enzymes (5) Diabetes mellitus with hyperglycemia, without long-term current use of insulin: Qualifiers: Diabetes mellitus type: type 2 Qualified Code(s): E11.65 - Type 2 diabetes mellitus with hyperglycemia Code(s): E11.65 - Type 2 diabetes mellitus with hyperglycemia Status: Chronic (6) Abdominal discomfort: Code(s): R10.9 - Unspecified abdominal pain Status: Acute Subjective Date/time seen: 12/07/23 15:29 Interval history: ercp yesterday, removed small stones and debris no pain plan is surgery Review of Systems Review of Systems: All systems reviewed & are unremarkable except as noted in HPI and below Exam Const: General: comfortable and no acute distress HENMT: Other: icteric Eyes: Sclera: scleral abnormality (icteric) Neck: Neck: supple Resp: Auscultation: clear to auscultation bilaterally Cardio: Rate: regular rate Rhythm: regular rhythm GI: Inspection: non-distended GI Palp: Yes Soft to palpation and No Tenderness to palpation present (GI) Auscultation: normal bowel sounds Skin: Other: icteric Neuro: Speech: normal speech Motor exam (neuro): 5/5 motor strength present throughout Extrem: General: normal to inspection Psych: Mental Status: mental status grossly normal Objective Data Vital Signs Vital Signs: Vital Signs - 24 hr 12/06/23 20:12 12/06/23 20:00 12/07/23 05:32 Temperature 96.9 F L 97.5 F L Pulse Rate 71 69 Respiratory Rate 16 16 Blood Pressure 160/72 H 162/65 H Pulse Oximetry 100 99 Oxygen Delivery Room Air 12/07/23 08:00 12/07/23 14:00 Temperature 98.0 F Pulse Rate 70 Respiratory Rate 16 Blood Pressure 147/74 H Pulse Oximetry 100 Oxygen Delivery Room Air Intake/Output Intake/Output: Intake & Output 12/04/23 12/05/23 12/06/23 12/07/23 23:59 23:59 23:59 23:59 Intake Total 1470 1852.5 Output Total 900 2050 Balance 570 -197.5 Meds/Results Medications: Active Medications Generic Name Dose Route Start Last Admin Trade Name Freq PRN Reason Stop Dose Admin Benzocaine 1 lozenge 12/06/23 20:23 Benzocaine/Menthol (*Bkc) 18 Ea Lozenge PO PRN PRN Sore Throat Dextrose 12.5 gm 12/06/23 01:44 Dextrose 50% 25 Gm/50 Ml Syringe IV PUSH PRN PRN Hypoglycemia Protocol Glucagon 1 mg 12/06/23 01:44 Glucagon For Inj 1 Mg Vial IM PRN PRN Hypoglycemia Protocol Glucose 15 gm 12/06/23 01:44 Glucose Oral Gel 15 Gm Of Glucse In 37.5 Gm Tube PO PRN PRN Hypoglycemia Protocol Hydralazine HCl 10 mg 12/06/23 01:48 Hydralazine Hcl 20 Mg/Ml Vial IV PUSH Q4H PRN Blood Pressure - High >160 Hydromorphone HCl 0.5 mg 12/05/23 19:01 Hydromorphone Hcl Inj (*Crx) 1 Mg/Ml Syr IV PUSH Q4H PRN Pain Rated 7-10 Sodium Chloride 1,000 mls @ 150 mls/hr 12/05/23 19:05 12/07/23 13:02 Normal Saline Iv IV CONT 150 mls/hr .[id number] ARACELI Administration Dextrose 1,000 mls @ 100 mls/hr 12/06/23 01:44 Dextrose 5% 1,000 Ml IVPB PRN PRN Hypoglycemia Protocol Cefazolin Sodium 2 gm in 50 mls @ 100 mls/hr 12/07/23 15:09 Ancef 2 Gm/D5w 50 Ml IVPB
--- NOTE | 2023-12-07 15:54 | WPDANESEPPF ---
Anes - Initial Pre Proc Eval Procedure: Operation Date: 12/06/23 12:45 Proposed Procedures p Endoscopic Retro Cholangiopancreatogram - Hero Stewart MD Operation Date: 12/07/23 17:00 Proposed Procedures p Laparoscopic Cholecystectomy, Possible Open - Salvador Tanner MD Date/Time: 12/07/23 15:54 Surgeon: Sera Marr DO Pre Op Diagnosis: Choledocholithiasis Patient Data Age: 63 Gender: M Height: 1.73 m Weight: 87.1 kg Last Vital Signs Temp 36.7 C 12/07/23 14:00 Pulse 70 12/07/23 14:00 Resp 16 12/07/23 14:00 BP 147/74 H 12/07/23 14:00 Pulse Ox 100 12/07/23 14:00 O2 Del Method Room Air 12/07/23 08:00 O2 Flow Rate 10 12/06/23 14:06 Allergies Allergy/AdvReac Type Severity Reaction Status Date / Time No Known Allergies Allergy Mild Verified 11/29/23 13:53 Home Medications Medication Instructions Recorded Confirmed Type amlodipine 10 mg tablet See Rx Instructions .Route 08/20/23 12/05/23 Rx .COMPLEX #90 tabs levothyroxine 137 mcg tablet 137 mcg PO DAILY #90 tabs 08/26/23 12/05/23 Rx atorvastatin 20 mg tablet 20 mg PO DAILY #90 tabs 08/27/23 12/05/23 Rx glimepiride 2 mg tablet 2 mg PO BID #180 tabs 08/27/23 12/05/23 Rx irbesartan 300 mg tablet 300 mg PO DAILY #90 tabs 08/27/23 12/05/23 Rx metoprolol succinate 50 mg 50 mg PO DAILY #90 tabs 08/27/23 12/05/23 Rx tablet,extended release 24 hr cyanocobalamin (vitamin B-12) 1,000 mcg subcut .[id number] #2 vials 11/20/23 12/05/23 Rx 1,000 mcg/mL injection solution pioglitazone 45 mg tablet 45 mg PO DAILY #90 tabs 11/20/23 12/05/23 Rx syringe with needle 3 mL 25 gauge #2 ea 11/20/23 12/06/23 Rx x 1 (BD Luer-Adalberto Syringe) metformin 500 mg tablet,extended 2,000 mg PO BID 12/05/23 12/05/23 History release 24 hr Laboratory Tests 12/06/23 12/07/23 12/07/23 19:18 05:33 11:05 WBC 9.0 K/mm3 (4.5-10.0) RBC 4.65 M/mm3 (4.6-6.20) Hgb 13.5 L g/dL (14.0-18.0) Hct 42.0 % (42.0-52.0) MCV 90.3 fl (80-100) MCH 29.0 pg (26-34) MCHC 32.1 g/dl (32-36) RDW 15.0 H % (11.5-14.5) Plt Count 424 H k/mm3 (150-375) MPV 10.6 H fl (7.4-10.4) PT 13.4 Seconds (11.1-14.7) INR 1.0 Sodium 139 mmol/L (137-145) Potassium 4.4 mmol/L (3.4-5.0) Chloride 108 H mmol/L (98-107) Carbon Dioxide 26 mmol/L (22-30) Anion Gap 5 mmol/L (4-12) BUN 14 mg/dL (9-20) Creatinine 0.70 mg/dL (0.7-1.3) Estim Creat Clear Calc 89 ml/min Estimated GFR > 60 (59 - ) Glucose 166 H mg/dL (65-110) POC Capillary Glucose 289 H mg/dl 151 H mg/dl (65-105) (65-105) Calcium 8.9 mg/dL (8.4-10.2) Total Bilirubin 4.0 H mg/dL (0.2-1.3) AST 111 H U/L (17-59) ALT 178 H U/L (6-50) Alkaline Phosphatase 267 H U/L (38-126) Total Protein 7.0 g/dL (6.3-8.2) Albumin 3.7 g/dL (3.5-5.1) Lipase 831 H U/L (23-300) 12/07/23 14:51 WBC RBC Hgb Hct MCV MCH MCHC RDW Plt Count MPV PT INR Sodium Potassium Chloride Carbon Dioxide Anion Gap BUN Creatinine Estim Creat Clear Calc Estimated GFR Glucose POC Capillary Glucose 141 H mg/dl (65-105) Calcium Total Bilirubin AST ALT Alkaline Phosphatase Total Protein Albumin Lipase Patient hx anesthesia problems: none Family hx anesthesia problems: none Results Review: All pre-operative results and documents have been reviewed as part of the pre-operative evaluation. [facility] Past Medical History Medical History B1
--- NOTE | 2023-12-07 16:12 | WPDHPUPDATE1 ---
History and Physical Update Update Date/Time: 12/07/23 16:12 History and Physical has been reviewed, including an updated exam of the patient. There are NO changes in the patient's condition. Risks, benefits, and alternatives have been discussed and questions answered. Patient agrees to proceed with procedure.
[2023-12-07] MEDS: LACTATED RINGERS 1,000 ML 30 ML IV CONT ×2 (16:22→19:01)
[2023-12-07] MEDS: ceFAZolin 2 GM/D5W 50 ML 2 GM/50 ML BAG IVPB (16:22)
[2023-12-07] MEDS: BUPivacaine HCL 0.5% PF 30 ML VIAL INFILTRATE (16:46)
[2023-12-07] MEDS: LIDO 1%/EPINEPHRINE 1:100,000 50 ML VIAL 30 ML INFILTRATE (16:46)
[2023-12-07 19:09] LABS: Glucose Point of Care 195 mg/dl (65-105)
--- NOTE | 2023-12-07 19:09 | W.PM.PROC2 ---
Procedure Note - Detailed Date of Procedure 12/07/23 Pre-op Diagnosis Choledocholithiasis Post-op Diagnosis Other (Severe chronic cholecystitis secondary to cholelithiasis, recent history choledocholithiasis and obstructive jaundice) Procedure Performed Laparoscopic fenestrated subtotal cholecystectomy Surgeon Salvador Tanner MD Inside Steward/Stewardess Ronald Valentino, [facility] Anesthesia General Indications Patient is a 63-year-old gentleman who was admitted to the hospital with evidence of obstructive jaundice secondary to choledocholithiasis. He underwent ERCP and extraction of common bile duct stone and debris and sphincterotomy. Total bilirubin liver enzymes are all decreasing. Very mild gallstone pancreatitis is improving as well. He has residual cholelithiasis and presents now for a laparoscopic cholecystectomy. Findings Patient had very severe chronic cholecystitis with severe dense adhesions of the omentum to the gallbladder wall. The gallbladder was chronically thickened and decompressed and intrahepatic. To gallstones are noted within the gallbladder. The chronic inflammation and adhesions very difficult to dissect out the infundibular gallbladder. For this reason I elected to perform a laparoscopic fenestrated subtotal cholecystectomy. Description of Procedure After informed consent was obtained patient brought to the operating room was placed supine position and general endotracheal anesthesia was administered. The abdomen was then prepped and draped usual sterile fashion. A time-out was then performed correctly identifying the patient as well as procedure to be performed. He was given some Ancef for perioperative IV antibiotics. I 1st entered the abdomen left upper quadrant utilizing a 5mm Optiview port. Once inside the abdomen insufflated to adequate pneumoperitoneum of 15mmHg of CO2. There were no adhesions around the umbilicus so I placed a 5mm periumbilical trocar port without difficulty. Looking into the upper portions of the abdomen it was evident that the patient had a chronic inflammatory process involving the gallbladder. The omentum was caked and densely adherent to the gallbladder. Initially I could not even see the gallbladder due to the envelopment of the gallbladder with the omentum. I placed additional trocar ports include a 10mm epigastric trocar port and 2 more right lateral subcostal 5mm trocar ports all under direct visualization. Working through these trocar ports I then proceeded to try to strip down the omentum off of the gallbladder bluntly but that was not successful. I then had a switch to using energy with a hook cautery to divide some of the omental adhesions to the gallbladder. I was then able to have 6 excess been bluntly stripped down some of the omentum off of the gallbladder and I could easily see that the gallbladder was now chronically inflamed with thickened gallbladder wall as well as the gallbladder being intrahepatic and decompressed. I tried to continue my dissection of the omentum and adhesions which included a portion of the duodenum off of the infundibular gallbladder. I was able to dissect the duodenum off of the infundibular gallbladder without injuring the duodenum. However the tissue around the infundibular gallbladder was chronically thickened and I was having a lot of difficulty in trying to identify what I felt would be a tapering infundibular gallbladder to the cystic duct. After about 35minutes [id number] of dissection around the infundibular gallbladder I felt that I could not get the critical view of safety. At this point I made the decision to perform a laparoscopic fenestrated subtotal cholecystectomy. What I felt was the upper portion of the infundibular gallbladder I used the hook cautery to make a vertical incision full-thickness through the anterior wall the gallbladder. Once I was in the lumen the gallbladder and extended the incision utilizing the hook cautery medial and lateral to the edge of the live
[2023-12-07] MEDS: fentaNYL CITRATE INJ (*CRX) 100 MCG/2 ML VIAL 25 MCG IV PUSH ×6 (19:19→20:06)
[2023-12-07] MEDS: METOPROLOL TARTRATE INJ 5 MG/5 ML VIAL IV PUSH (19:48)
[2023-12-07] MEDS: HYDROmorphone HCL INJ (*CRX) 1 MG/ML SYR 0.5 MG IV PUSH ×4 (19:56→23:01)
[2023-12-07] MEDS: LABETALOL HCL INJ 100 MG/20 ML VIAL 10 MG IV PUSH (20:15)
[2023-12-07 23:38] LABS: Glucose Point of Care 221 mg/dl (65-105)
[2023-12-08 04:00] VITALS: BP 153/84; PULSE 84; RESP 16; TEMP 36.5; O2SAT 98
[2023-12-08] MEDS: HYDROmorphone HCL INJ (*CRX) 1 MG/ML SYR 0.5 MG IV PUSH ×5 (04:28→20:26)
[2023-12-08] MEDS: LEVOTHYROXINE SODIUM INJ 100 MCG/5 ML VIAL 68.5 MCG IV PUSH (05:51)
[2023-12-08 06:36] LABS: Basophils Absolute Auto 0.1 K/mm3 (0.0-0.1); Basophils Percent Auto 0.5 % (0.2-1.2); Eosinophils Percent Auto 0.1 % (0-4.4); Hematocrit 40.9 % (42.0-52.0); Hemoglobin 13.1 g/dL (14.0-18.0); Immature Granulocyte Absolute 0.06 K/mm3 (0.00-0.031); Immature Granulocyte Percent A 0.4 % (0-0.5); Lymphocytes Percent Auto 7.3 % (18.3-44.2); Mean Corpuscular Hemoglobin 29.6 pg (26-34); Mean Corpuscular Volume 92.3 fl (80-100); Mean Platelet Volume 10.3 fl (7.4-10.4); Monocytes Absolute Auto 0.9 K/mm3 (0.1-0.6); Monocytes Percent Auto 6.1 % (2.6-8.5); Neutrophils Percent Auto 85.6 % (45.5-73.1); Platelet Count Result 411 k/mm3 (150-375); Red Blood Count 4.43 M/mm3 (4.6-6.20); Red Cell Distribution Width 15.7 % (11.5-14.5); White Blood Count 15.1 K/mm3 (4.5-10.0)
[2023-12-08 06:47] LABS: Alanine Aminotransferase 169 U/L (6-50); Albumin Level 3.6 g/dL (3.5-5.1); Alkaline Phosphatase 231 U/L (38-126); Anion Gap 6 mmol/L (4-12); Aspartate Amino Transferase 127 U/L (17-59); Bilirubin,Total 3.2 mg/dL (0.2-1.3); Blood Urea Nitrogen 11 mg/dL (9-20); Calcium 8.3 mg/dL (8.4-10.2); Carbon Dioxide 23 mmol/L (22-30); Chloride 107 mmol/L (98-107); Estimated CRCL calculation 89 ml/min; Estimated Glomerular Filt Rate > 60; Glucose 172 mg/dL (65-110); Potassium 4.4 mmol/L (3.4-5.0); Sodium 136 mmol/L (137-145)
[2023-12-08 07:40] LABS: Glucose Point of Care 160 mg/dl (65-105)
[2023-12-08] MEDS: SODIUM CHLORIDE 0.9% IV 1,000 ML 150 ML IV CONT (07:53)
[2023-12-08 08:13] VITALS: BP 178/83; PULSE 82; RESP 14; TEMP 36.5; O2SAT 99
--- NOTE | 2023-12-08 09:00 | WPDANESPN ---
Anes - Prog Note Post-Op Date/Time: 12/08/23 09:00 Cardiovascular status: normal Respiratory status: normal Airway patency: baseline Mental status: baseline Post-Op hydration status: normal Vital Signs: Last Vital Signs Temp 36.5 C 12/08/23 08:13 Pulse 82 12/08/23 08:13 Resp 14 12/08/23 08:13 BP 178/83 H 12/08/23 08:13 Pulse Ox 99 12/08/23 08:13 O2 Del Method Nasal Cannula 12/07/23 20:30 O2 Flow Rate 2 12/07/23 20:30 Pain Score (VAS): 2 I/O: Intake & Output 12/07/23 12/08/23 12/08/23 23:59 07:59 15:59 Intake Total 1550 1120 480 Output Total 800 1510 300 Balance 750 -390 180 Laboratory Tests 12/08/23 06:23 12/08/23 06:23 12/07/23 12/07/23 12/07/23 11:05 14:51 19:06 WBC RBC Hgb Hct MCV MCH MCHC RDW Plt Count MPV Immature Gran % (Auto) Neut % (Auto) Lymph % (Auto) [place] % (Auto) Eos % (Auto) Baso % (Auto) Lymph # (Auto) [place] # (Auto) Eos # (Auto) Baso # (Auto) Abs Immat Gran (auto) Absolute Neuts (auto) Absolute Nucleated RBC Nucleated RBC % Sodium Potassium Chloride Carbon Dioxide Anion Gap BUN Creatinine Estim Creat Clear Calc Estimated GFR Glucose POC Capillary Glucose 151 H 141 H 195 H Calcium Total Bilirubin AST ALT Alkaline Phosphatase Total Protein Albumin 12/07/23 12/08/23 12/08/23 23:29 06:23 07:25 WBC 15.1 H RBC 4.43 L Hgb 13.1 L Hct 40.9 L MCV 92.3 MCH 29.6 MCHC 32.0 RDW 15.7 H Plt Count 411 H MPV 10.3 Immature Gran % (Auto) 0.4 Neut % (Auto) 85.6 H Lymph % (Auto) 7.3 L [place] % (Auto) 6.1 Eos % (Auto) 0.1 Baso % (Auto) 0.5 Lymph # (Auto) 1.10 [place] # (Auto) 0.9 H Eos # (Auto) 0.0 Baso # (Auto) 0.1 Abs Immat Gran (auto) 0.06 H Absolute Neuts (auto) 13.0 H Absolute Nucleated RBC 0.000 Nucleated RBC % 0.0 Sodium 136 L Potassium 4.4 Chloride 107 Carbon Dioxide 23 Anion Gap 6 BUN 11 Creatinine 0.70 Estim Creat Clear Calc 89 Estimated GFR > 60 Glucose 172 H POC Capillary Glucose 221 H 160 H Calcium 8.3 L Total Bilirubin 3.2 H AST 127 H ALT 169 H Alkaline Phosphatase 231 H Total Protein 7.0 Albumin 3.6 Post-procedural complaints: none Patient Feedback: Patient satisfied with anesthetic care.
[2023-12-08 11:20] LABS: Glucose Point of Care 306 mg/dl (65-105)
--- NOTE | 2023-12-08 11:49 | P.PNIM_ITS ---
Progress Note: A&P Assessment and Plan (1) Choledocholithiasis: Code(s): K80.50 - Calculus of bile duct without cholangitis or cholecystitis without obstruction Status: Acute Assessment and Plan: * Patient is postop day 1 from a laparoscopic fenestrated subtotal cholecystectomy * General surgery following * GI following * Patient is hoarse and wheezing, currently on room air, we will get an incentive spirometer * Encourage patient to be up ambulating in the halls in out of bed to the chair as much as possible * Continue with pain control * Abdomen is distended, tender, absent bowel sounds, not passing flatus * Continue with a clear liquid diet today (2) Acute pancreatitis: Qualifiers: Acute pancreatitis complication: no infection or necrosis Pancreatitis type: biliary Qualified Code(s): K85.10 - Biliary acute pancreatitis without necrosis or infection Code(s): K85.90 - Acute pancreatitis without necrosis or infection, unspecified Status: Acute Assessment and Plan: * Patient is postop day 1 from a laparoscopic fenestrated subtotal cholecystectomy * acute pancreatitis due to choledocholithiasis with associated jaundice and transaminitis. * GI consulted and following-ERCP done and stone removed. * General surgery - following and monitoring * Lipase down to 831 yesterday from 3368 on 12/05/2023 (3) Diabetes mellitus with hyperglycemia, without long-term current use of insulin: Qualifiers: Diabetes mellitus type: type 2 Qualified Code(s): E11.65 - Type 2 diabetes mellitus with hyperglycemia Code(s): E11.65 - Type 2 diabetes mellitus with hyperglycemia Status: Chronic Assessment and Plan: * Blood sugars ranging 162-306 * Last hemoglobin A1c on 11/15/2023 was 8.2 * Continue Accu-Cheks AC and HS * Currently on a clear liquid diet * Glimepiride metformin and pioglitazone on hold * Moderate dose SSI ordered * hypoglycemic protocol in place (4) Essential (primary) hypertension: Code(s): I10 - Essential (primary) hypertension Status: Chronic Assessment and Plan: * Blood pressures ranging 153/84 to 178/83 * Continue amlodipine, irbesartan, and metoprolol (5) Transaminitis: Code(s): R74.01 - Elevation of levels of liver transaminase levels Status: Acute Assessment and Plan: * Total bilirubin 3.2, AST 127, ALT 169 which is trending down postsurgical * Continue to trend labs (6) AAA (abdominal aortic aneurysm): Onset Date: 11/2023 Qualifiers: Abdominal aorta location: infrarenal aorta Presence of rupture: without rupture Qualified Code(s): I71.43 - Infrarenal abdominal aortic aneurysm, without rupture Code(s): I71.40 - Abdominal aortic aneurysm, without rupture, unspecified Status: Acute Assessment and Plan: * CTA showed 3.3 cm infrarenal abdominal aortic aneurysm * Patient preferred an outpatient to see Cardiology. (7) Hyperlipidemia: Code(s): E78.5 - Hyperlipidemia, unspecified Status: Acute Assessment and Plan: * Continue atorvastatin (8) History of thyroid irradiation: Code(s): Z92.3 - Personal history of irradiation Status: Acute Assessment and Plan: * Continue Synthroid Time Spent With Patient Time with patient: Greater than 35 minutes Subjective Date/time seen: 12/08/23 11:49 Interval history: This is a 63-year-old male who presented to the hospital on 12/06/2023 with complaints of abdominal pain and abnormal outpatient CT. Outpatient CT of
--- NOTE | 2023-12-08 11:49 | PM.IMPN ---
Progress Note: A&P Assessment and Plan (1) Choledocholithiasis: Code(s): K80.50 - Calculus of bile duct without cholangitis or cholecystitis without obstruction Status: Acute Assessment and Plan: Patient is postop day 1 from a laparoscopic fenestrated subtotal cholecystectomy General surgery following GI following Patient is hoarse and wheezing, currently on room air, we will get an incentive spirometer Encourage patient to be up ambulating in the halls in out of bed to the chair as much as possible Continue with pain control Abdomen is distended, tender, absent bowel sounds, not passing flatus Continue with a clear liquid diet today (2) Acute pancreatitis: Qualifiers: Acute pancreatitis complication: no infection or necrosis Pancreatitis type: biliary Qualified Code(s): K85.10 - Biliary acute pancreatitis without necrosis or infection Code(s): K85.90 - Acute pancreatitis without necrosis or infection, unspecified Status: Acute Assessment and Plan: Patient is postop day 1 from a laparoscopic fenestrated subtotal cholecystectomy acute pancreatitis due to choledocholithiasis with associated jaundice and transaminitis. GI consulted and following-ERCP done and stone removed. General surgery - following and monitoring Lipase down to 831 yesterday from 3368 on 12/05/2023 (3) Diabetes mellitus with hyperglycemia, without long-term current use of insulin: Qualifiers: Diabetes mellitus type: type 2 Qualified Code(s): E11.65 - Type 2 diabetes mellitus with hyperglycemia Code(s): E11.65 - Type 2 diabetes mellitus with hyperglycemia Status: Chronic Assessment and Plan: Blood sugars ranging 162-306 Last hemoglobin A1c on 11/15/2023 was 8.2 Continue Accu-Cheks AC and HS Currently on a clear liquid diet Glimepiride metformin and pioglitazone on hold Moderate dose SSI ordered hypoglycemic protocol in place (4) Essential (primary) hypertension: Code(s): I10 - Essential (primary) hypertension Status: Chronic Assessment and Plan: Blood pressures ranging 153/84 to 178/83 Continue amlodipine, irbesartan, and metoprolol (5) Transaminitis: Code(s): R74.01 - Elevation of levels of liver transaminase levels Status: Acute Assessment and Plan: Total bilirubin 3.2, AST 127, ALT 169 which is trending down postsurgical Continue to trend labs (6) AAA (abdominal aortic aneurysm): Onset Date: 11/2023 Qualifiers: Abdominal aorta location: infrarenal aorta Presence of rupture: without rupture Qualified Code(s): I71.43 - Infrarenal abdominal aortic aneurysm, without rupture Code(s): I71.40 - Abdominal aortic aneurysm, without rupture, unspecified Status: Acute Assessment and Plan: CTA showed 3.3 cm infrarenal abdominal aortic aneurysm Patient preferred an outpatient to see Cardiology. (7) Hyperlipidemia: Code(s): E78.5 - Hyperlipidemia, unspecified Status: Acute Assessment and Plan: Continue atorvastatin (8) History of thyroid irradiation: Code(s): Z92.3 - Personal history of irradiation Status: Acute Assessment and Plan: Continue Synthroid Time Spent With Patient Time with patient: Greater than 35 minutes Subjective Date/time seen: 12/08/23 11:49 Interval history: This is a 63-year-old male who presented to the hospital on 12/06/2023 with complaints of abdominal pain and abnormal outpatient CT. Outpatient CT of the abdomen pelvis showed a 7 mm stone in the distal common bile duct along with cholelithiasis, 3.3 cm infrarenal abdominal aortic aneurysm and small to moderate fat containing left inguinal hernia. Repeat CT of the abdomen pelvis on 12/05/2023 showed choledocholithiasis with dilated common bile duct and 7 mm hyperdense stone in the distal common bile duct, cholelithiasis, 3.3 cm abdominal aortic aneurysm, small to mode
[2023-12-08 12:00] VITALS: BP 154/80; PULSE 90; RESP 16; TEMP 36.3; O2SAT 97
[2023-12-08] MEDS: ATORVASTATIN 20 MG TABLET PO (12:22)
[2023-12-08] MEDS: IRBESARTAN 150 MG TABLET 300 MG PO (12:22)
[2023-12-08] MEDS: amLODIPine BESYLATE 5 MG TABLET 10 MG BY MOUTH (12:22)
[2023-12-08] MEDS: METOPROLOL SUCCINATE EXT REL 50 MG TABCR PO (12:22)
[2023-12-08] MEDS: INSULIN ASPART (*BKC) 100 UNITS/ML SUB-Q ×2 (12:23→16:29)
--- NOTE | 2023-12-08 14:00 | WPDGIPROGNO ---
Progress Note: A&P Assessment and Plan (1) Choledocholithiasis: Code(s): K80.50 - Calculus of bile duct without cholangitis or cholecystitis without obstruction Status: Acute Assessment and Plan: ercp with removal of small stones, also obtained cytology from distal bile duct s/p lap vera, JOSE drain in place bilirubin is coming down and overall feeling better (2) Gallstone pancreatitis: Code(s): K85.10 - Biliary acute pancreatitis without necrosis or infection Status: Acute Assessment and Plan: diet per surgery doing better (3) Obstructive jaundice: Code(s): K83.1 - Obstruction of bile duct Status: Acute Assessment and Plan: from cholecystitis/stone bile duct- treated with ercp and vera bili is coming down (4) Elevated LFTs: Code(s): R79.89 - Other specified abnormal findings of blood chemistry Status: Acute Assessment and Plan: downtrending (5) Diabetes mellitus with hyperglycemia, without long-term current use of insulin: Qualifiers: Diabetes mellitus type: type 2 Qualified Code(s): E11.65 - Type 2 diabetes mellitus with hyperglycemia Code(s): E11.65 - Type 2 diabetes mellitus with hyperglycemia Status: Chronic Subjective Date/time seen: 12/08/23 14:00 Interval history: lap vera yesterday with significant GB inflammation, he is recovering from surgery and better than yesterday, JOSE drain in place Review of Systems Review of Systems: All systems reviewed & are unremarkable except as noted in HPI and below Exam Const: General: comfortable and no acute distress HENMT: Face/Nose/Sinus: Normal nares present Eyes: Sclera: scleral abnormality (less icteric) Neck: Neck: supple Resp: Auscultation: clear to auscultation bilaterally Cardio: Rate: regular rate Rhythm: regular rhythm GI: Inspection: non-distended GI Palp: Yes Soft to palpation and Yes Tenderness to palpation present (GI) (expected tenderness from surgery, JOSE drain in place) Auscultation: normal bowel sounds Skin: Other: less icteric Neuro: Speech: normal speech Motor exam (neuro): 5/5 motor strength present throughout Extrem: General: normal to inspection Psych: Mental Status: mental status grossly normal Objective Data Vital Signs Vital Signs: Vital Signs - 24 hr 12/07/23 19:00 12/07/23 19:15 12/07/23 19:30 Temperature 97.6 F Pulse Rate 88 93 93 Respiratory Rate 20 16 17 Blood Pressure 156/86 H 188/92 H 183/91 H Pulse Oximetry 100 100 98 Oxygen Delivery Simple Face Mask Simple Face Mask Room Air Oxygen Flow Rate 10 10 12/07/23 19:48 12/07/23 19:45 12/07/23 20:00 Temperature Pulse Rate 93 83 84 Respiratory Rate 17 18 Blood Pressure 184/90 H 169/84 H Pulse Oximetry 93 99 Oxygen Delivery Room Air Nasal Cannula Oxygen Flow Rate 2 12/07/23 20:15 12/07/23 20:15 12/07/23 20:30 Temperature Pulse Rate 75 80 75 Respiratory Rate 12 17 Blood Pressure 151/81 H 151/81 H Pulse Oximetry 100 99 Oxygen Delivery Nasal Cannula Nasal Cannula Oxygen Flow Rate 2 2 12/07/23 20:00 12/07/23 21:50 12/07/23 22:05 Temperature 97.5 F L 97.6 F Pulse Rate 74 82 Respiratory Rate 16 16 Blood Pressure 154/70 H 146/70 H Pulse Oximetry 99 93 92 Oxygen Delivery Nasal Cannula Oxygen Flow Rate 2 12/07/23 22:35 12/07/23 23:35 12/08/23 04:00 Temperature 97.6 F 98 F 97.7 F Pulse Rate 85 87 84 Respiratory Rate 16 16 16 Blood Pressure 154/79 H 143/71 H 153/84 H Pulse Oximetry 96 96 98 Oxygen Delivery Oxygen Flow Rate 12/08/23 08:13 12/08/23 08:00 12/08/23 12:00 Temperature 97.7 F 97.4 F L Pulse Rate 82 90 Respiratory Rate 14 16 Blood Pressure 178/83 H 154/80 H Pulse Oximetry 99 97 Oxygen Delivery Room Air Oxygen Flow Rate Intake/Output Intake/Output: Intake & Output 12/05/23 12/06/23 12/07/23 12/08/23 23:59 23:59 23:59 23:59 Intake Total 1470 3402.5 1840 Out
[2023-12-08 16:14] LABS: Glucose Point of Care 228 mg/dl (65-105)
--- NOTE | 2023-12-08 17:01 | PM.PNGS ---
Progress Note: A&P Assessment and Plan (1) Choledocholithiasis with acute cholecystitis with obstruction: Code(s): K80.43 - Calculus of bile duct with acute cholecystitis with obstruction Status: Acute Assessment and Plan: Still having fair amount of pain after surgery. Taking IV analgesics for pain medication. He has however been up walking in the halls. He is tolerating a diabetic diet. JOSE drain shows no evidence of a bile leak at this point. Continue inpatient care with narcotic analgesics, monitoring blood sugars and managing his diabetes. Satisfactory progress postop day 1 (2) Gallstone pancreatitis: Code(s): K85.10 - Biliary acute pancreatitis without necrosis or infection Status: Acute Assessment and Plan: No longer an issue (3) Elevated LFTs: Code(s): R79.89 - Other specified abnormal findings of blood chemistry Status: Acute Assessment and Plan: Bilirubin and LFTs are all decreasing following surgery (4) Diabetes mellitus with hyperglycemia, without long-term current use of insulin: Qualifiers: Diabetes mellitus type: type 2 Qualified Code(s): E11.65 - Type 2 diabetes mellitus with hyperglycemia Code(s): E11.65 - Type 2 diabetes mellitus with hyperglycemia Status: Chronic Assessment and Plan: Blood sugars mostly around 200. Subjective Subjective Date/Time Seen: 12/08/23 17:01 Post Op day: 1 Patient reports: still having pain (Taking IV medications for pain control) and tolerating a regular diet Exam Const: General: comfortable and no acute distress Orientation/consciousness: patient oriented x3 Eyes: Sclera: scleral abnormality (Icteric) GI: Inspection: incision (Dry, healing. No bile in JOSE drain) GI Palp: Yes Firmness to palpation present (GI), Yes Tenderness to palpation present (GI) (Mostly upper abdomen), Yes Guarding due to palpation present (GI) and No Rebound tenderness present Neuro: General: patient oriented x3 and no focal motor deficits Extrem: General: no calf tenderness and no edema Psych: Affect: normal affect Insight: Good insight present (Psych) Judgement: Good judgement present (Psych) Objective Data Vital Signs Vital Signs: Vital Signs - 24 hr 12/07/23 19:00 12/07/23 19:15 12/07/23 19:30 Temperature 36.4 C Pulse Rate 88 93 93 Respiratory Rate 20 16 17 Blood Pressure 156/86 H 188/92 H 183/91 H Pulse Oximetry 100 100 98 Oxygen Delivery Simple Face Mask Simple Face Mask Room Air Oxygen Flow Rate 10 10 12/07/23 19:48 12/07/23 19:45 12/07/23 20:00 Temperature Pulse Rate 93 83 84 Respiratory Rate 17 18 Blood Pressure 184/90 H 169/84 H Pulse Oximetry 93 99 Oxygen Delivery Room Air Nasal Cannula Oxygen Flow Rate 2 12/07/23 20:15 12/07/23 20:15 12/07/23 20:30 Temperature Pulse Rate 75 80 75 Respiratory Rate 12 17 Blood Pressure 151/81 H 151/81 H Pulse Oximetry 100 99 Oxygen Delivery Nasal Cannula Nasal Cannula Oxygen Flow Rate 2 2 12/07/23 20:00 12/07/23 21:50 12/07/23 22:05 Temperature 36.4 C L 36.4 C Pulse Rate 74 82 Respiratory Rate 16 16 Blood Pressure 154/70 H 146/70 H Pulse Oximetry 99 93 92 Oxygen Delivery Nasal Cannula Oxygen Flow Rate 2 12/07/23 22:35 12/07/23 23:35 12/08/23 04:00 Temperature 36.4 C 36.6 C 36.5 C Pulse Rate 85 87 84 Respiratory Rate 16 16 16 Blood Pressure 154/79 H 143/71 H 153/84 H Pulse Oximetry 96 96 98 Oxygen Delivery Oxygen Flow Rate 12/08/23 08:13 12/08/23 08:00 12/08/23 12:00 Temperature 36.5 C 36.3 C L Pulse Rate 82 90 Respiratory Rate 14 16 Blood Pressure 178/83 H 154/80 H Pulse Oximetry 99 97 Oxygen Delivery Room Air Oxygen Flow Rate Intake/Output Intake/Output: Intake & Output 12/05/23 12/06/23 12/07/23 12/08/23 23:59 23:59 23:59 23:59 Intake Total 1470 3402.5 1840 Output Total 900 2850 1810 Balance 570 552.5 30 Meds/Results Medications: Activ
[2023-12-08 20:00] VITALS: PULSE 77; RESP 18; TEMP 36.5; O2SAT 96
[2023-12-08 20:34] LABS: Glucose Point of Care 223 mg/dl (65-105)
[2023-12-08 21:00] VITALS: BP 164/78
[2023-12-09] VITALS (7 sets, daily range): BP systolic 147–182; BP diastolic 76–90; PULSE 83–108; RESP 18–22; TEMP 36.4–36.9; O2SAT 93–100
[2023-12-09] MEDS: HYDROmorphone HCL INJ (*CRX) 1 MG/ML SYR 0.5 MG IV PUSH ×2 (00:34→04:56)
[2023-12-09] MEDS: hydrALAZINE HCL 20 MG/ML VIAL 10 MG IV PUSH (00:35)
[2023-12-09] MEDS: LEVOTHYROXINE SODIUM 112 MCG TABLET PO (04:56)
[2023-12-09] MEDS: LEVOTHYROXINE SODIUM 25 MCG TABLET PO (04:56)
[2023-12-09 07:45] LABS: Glucose Point of Care 169 mg/dl (65-105)
[2023-12-09 07:48] LABS: Alanine Aminotransferase 121 U/L (6-50); Albumin Level 3.5 g/dL (3.5-5.1); Alkaline Phosphatase 200 U/L (38-126); Anion Gap 5 mmol/L (4-12); Aspartate Amino Transferase 66 U/L (17-59); Bilirubin,Total 3.1 mg/dL (0.2-1.3); Blood Urea Nitrogen 9 mg/dL (9-20); Calcium 8.4 mg/dL (8.4-10.2); Carbon Dioxide 22 mmol/L (22-30); Chloride 106 mmol/L (98-107); Estimated CRCL calculation 102 ml/min; Estimated Glomerular Filt Rate > 60; Glucose 189 mg/dL (65-110); Lipase 197 U/L (23-300); Potassium 3.8 mmol/L (3.4-5.0); Sodium 133 mmol/L (137-145)
[2023-12-09 08:36] LABS: Basophils Absolute Auto 0.1 K/mm3 (0.0-0.1); Basophils Percent Auto 0.8 % (0.2-1.2); Eosinophils Absolute Auto 0.1 K/mm3 (0-0.3); Eosinophils Percent Auto 0.5 % (0-4.4); Hematocrit 41.9 % (42.0-52.0); Hemoglobin 13.2 g/dL (14.0-18.0); Immature Granulocyte Absolute 0.09 K/mm3 (0.00-0.031); Immature Granulocyte Percent A 0.8 % (0-0.5); Lymphocytes Percent Auto 9.2 % (18.3-44.2); Mean Corpuscular HGB Conc 31.5 g/dl (32-36); Mean Corpuscular Hemoglobin 29.1 pg (26-34); Mean Corpuscular Volume 92.3 fl (80-100); Mean Platelet Volume 10.9 fl (7.4-10.4); Monocytes Absolute Auto 0.9 K/mm3 (0.1-0.6); Monocytes Percent Auto 7.4 % (2.6-8.5); Neutrophils Absolute Auto 9.7 K/mm3 (1.3-6.7); Neutrophils Percent Auto 81.3 % (45.5-73.1); Platelet Count Result 366 k/mm3 (150-375); Red Blood Count 4.54 M/mm3 (4.6-6.20); Red Cell Distribution Width 15.4 % (11.5-14.5)
[2023-12-09] MEDS: HYDROmorphone HCL INJ (*CRX) 1 MG/ML SYR IV PUSH ×3 (09:03→17:35)
[2023-12-09] MEDS: METOPROLOL SUCCINATE EXT REL 50 MG TABCR PO (09:04)
[2023-12-09] MEDS: IRBESARTAN 150 MG TABLET 300 MG PO (09:04)
[2023-12-09] MEDS: ATORVASTATIN 20 MG TABLET PO (09:04)
[2023-12-09] MEDS: amLODIPine BESYLATE 5 MG TABLET 10 MG BY MOUTH (09:04)
--- NOTE | 2023-12-09 09:11 | PM.PNGS ---
Progress Note: A&P Assessment and Plan (1) Choledocholithiasis with acute cholecystitis with obstruction: Code(s): K80.43 - Calculus of bile duct with acute cholecystitis with obstruction Status: Acute Assessment and Plan: Still having pain and taking intravenous pain medication. Advised him to try the oral medication 1st and only used the IV medication as a backup. He is tolerating a diabetic regular diet. Liver function tests continue to improve. Hopefully home tomorrow. JOSE drain shows no evidence bile leak. Subjective Subjective Date/Time Seen: 12/09/23 09:11 Patient reports: still having pain and tolerating a regular diet Interval history: Taking IV analgesics Exam Const: General: comfortable and no acute distress Orientation/consciousness: patient oriented x3 GI: Inspection: no abdominal wall ecchymosis, non-distended and incision (Dry and healing, serosanguineous JOSE output) GI Palp: Yes Soft to palpation, Yes Tenderness to palpation present (GI) (Entire upper abdomen still very tender), No Guarding due to palpation present (GI) and No Rebound tenderness present Auscultation: normal bowel sounds Neuro: General: patient oriented x3 and no focal motor deficits Extrem: General: no calf tenderness and no edema Psych: Affect: normal affect Insight: Good insight present (Psych) Judgement: Good judgement present (Psych) Objective Data Vital Signs Vital Signs: Vital Signs - 24 hr 12/08/23 12:00 12/08/23 20:00 12/08/23 21:00 Temperature 36.3 C L 36.5 C Pulse Rate 90 77 Respiratory Rate 16 18 Blood Pressure 154/80 H 164/78 H Pulse Oximetry 97 96 Oxygen Delivery 12/08/23 20:00 12/09/23 00:00 12/09/23 04:00 Temperature 36.4 C 36.8 C Pulse Rate 86 108 H Respiratory Rate 18 18 Blood Pressure 182/84 H 165/87 H Pulse Oximetry 95 95 Oxygen Delivery Room Air 12/09/23 08:23 12/09/23 09:04 Temperature Pulse Rate 100 Respiratory Rate Blood Pressure Pulse Oximetry 93 Oxygen Delivery Room Air Intake/Output Intake/Output: Intake & Output 12/06/23 12/07/23 12/08/23 12/09/23 23:59 23:59 23:59 23:59 Intake Total 1470 3402.5 2080 100 Output Total 900 2850 2138 550 Balance 570 552.5 -58 -450 Meds/Results Medications: Active Medications Generic Name Dose Route Start Last Admin Trade Name Freq PRN Reason Stop Dose Admin Amlodipine Besylate 10 mg 12/08/23 12:15 12/09/23 09:04 Amlodipine Besylate 5 Mg Tablet BY MOUTH 10 mg QAM ARACELI Administration Atorvastatin Calcium 20 mg 12/08/23 12:15 12/09/23 09:04 Atorvastatin 20 Mg Tablet PO 20 mg DAILY ARACELI Administration Benzocaine 1 lozenge 12/06/23 20:23 Benzocaine/Menthol (*Bkc) 18 Ea Lozenge PO PRN PRN Sore Throat Dextrose 12.5 gm 12/06/23 01:44 Dextrose 50% 25 Gm/50 Ml Syringe IV PUSH PRN PRN Hypoglycemia Protocol Glucagon 1 mg 12/06/23 01:44 Glucagon For Inj 1 Mg Vial IM PRN PRN Hypoglycemia Protocol Glucose 15 gm 12/06/23 01:44 Glucose Oral Gel 15 Gm Of Glucse In 37.5 Gm Tube PO PRN PRN Hypoglycemia Protocol Hydralazine HCl 10 mg 12/06/23 01:48 12/09/23 00:35 Hydralazine Hcl 20 Mg/Ml Vial IV PUSH 10 mg Q4H PRN Administration Blood Pressure - High >160 Hydromorphone HCl 1 mg 12/09/23 08:17 12/09/23 09:03 Hydromorphone Hcl Inj (*Crx) 1 Mg/Ml Syr IV PUSH 1 mg Q4H PRN Administration Pain Rated 7-10 Dextrose 1,000 mls @ 100 mls/hr 12/06/23 01:44 Dextrose 5% 1,000 Ml IVPB PRN PRN Hypoglycemia Protocol Insulin Aspart 3 - 6 units 12/06/23 12:00 12/09/23 09:05 Insulin Aspart (*Bkc) 100 Units/Ml SUB-Q Not Given TID[facility] Protocol Irbesartan 300 mg 12/08/23 12:15 12/09/23 09:04 Irbesartan 150 Mg Tablet PO 300 mg DAILY ARACELI Administration Levothyroxine Sodium 112 mcg 12/09/23 06:30 12/09/23 04:56 Levothyroxine Sodium 112
[2023-12-09 11:23] LABS: Glucose Point of Care 192 mg/dl (65-105)
[2023-12-09] MEDS: ENOXAPARIN 40 MG/0.4 ML SYRINGE SUB-Q (13:11)
--- NOTE | 2023-12-09 13:13 | WPDGIPROGNO ---
Progress Note: A&P Assessment and Plan (1) Choledocholithiasis: Code(s): K80.50 - Calculus of bile duct without cholangitis or cholecystitis without obstruction Status: Acute Assessment and Plan: ercp with removal of small stones, also obtained cytology from distal bile duct s/p lap vear, JOSE drain in place feeling better timing of discharge per surgery (2) Gallstone pancreatitis: Code(s): K85.10 - Biliary acute pancreatitis without necrosis or infection Status: Acute Assessment and Plan: tolerating diet doing better (3) Obstructive jaundice: Code(s): K83.1 - Obstruction of bile duct Status: Acute Assessment and Plan: from cholecystitis/stone bile duct- treated with ercp and vera bili is coming down (4) Elevated LFTs: Code(s): R79.89 - Other specified abnormal findings of blood chemistry Status: Acute Assessment and Plan: downtrending (5) Diabetes mellitus with hyperglycemia, without long-term current use of insulin: Qualifiers: Diabetes mellitus type: type 2 Qualified Code(s): E11.65 - Type 2 diabetes mellitus with hyperglycemia Code(s): E11.65 - Type 2 diabetes mellitus with hyperglycemia Status: Chronic Subjective Date/time seen: 12/09/23 13:13 Interval history: pain better, eating more Review of Systems Review of Systems: All systems reviewed & are unremarkable except as noted in HPI and below Exam Const: General: comfortable and no acute distress Orientation/consciousness: patient oriented x3 HENMT: Face/Nose/Sinus: Normal nares present Eyes: Pupils: Equal, round and reactive pupils present Neck: Neck: supple Resp: Effort & Inspection: normal respiratory effort Cardio: Rate: regular rate GI: Inspection: no abdominal wall ecchymosis, non-distended and incision (Dry and healing, serosanguineous JOSE output) GI Palp: Yes Soft to palpation, Yes Tenderness to palpation present (GI) (Entire upper abdomen still very tender), No Guarding due to palpation present (GI) and No Rebound tenderness present Auscultation: normal bowel sounds Skin: General skin exam: no rashes or lesions noted Neuro: General: patient oriented x3 and no focal motor deficits Extrem: General: no calf tenderness and no edema Psych: Affect: normal affect Insight: Good insight present (Psych) Judgement: Good judgement present (Psych) Objective Data Vital Signs Vital Signs: Vital Signs - 24 hr 12/08/23 20:00 12/08/23 21:00 12/08/23 20:00 Temperature 97.7 F Pulse Rate 77 Respiratory Rate 18 Blood Pressure 164/78 H Pulse Oximetry 96 Oxygen Delivery Room Air 12/09/23 00:00 12/09/23 04:00 12/09/23 08:23 Temperature 97.6 F 98.2 F Pulse Rate 86 108 H Respiratory Rate 18 18 Blood Pressure 182/84 H 165/87 H Pulse Oximetry 95 95 93 Oxygen Delivery Room Air 12/09/23 09:04 12/09/23 08:00 12/09/23 12:00 Temperature 97.7 F Pulse Rate 100 96 Respiratory Rate 22 H Blood Pressure 168/90 H Pulse Oximetry 96 Oxygen Delivery Room Air Intake/Output Intake/Output: Intake & Output 12/06/23 12/07/23 12/08/23 12/09/23 23:59 23:59 23:59 23:59 Intake Total 1470 3402.5 2080 460 Output Total 900 2850 2138 550 Balance 570 552.5 -58 -90 Meds/Results Medications: Active Medications Generic Name Dose Route Start Last Admin Trade Name Freq PRN Reason Stop Dose Admin Acetaminophen 500 mg 12/09/23 09:16 Acetaminophen 500 Mg Tablet PO Q6H PRN Pain Rated 1-3 Amlodipine Besylate 10 mg 12/08/23 12:15 12/09/23 09:04 Amlodipine Besylate 5 Mg Tablet BY MOUTH 10 mg QAM ARACELI Administration Atorvastatin Calcium 20 mg 12/08/23 12:15 12/09/23 09:04 Atorvastatin 20 Mg Tablet PO 20 mg DAILY ARACELI Administration Benzocaine 1 lozenge 12/06/23 20:23 Benzocaine/Menthol (*Bkc) 18 Ea Lozenge PO PRN PRN Sore Throat Dextrose 12.5 gm 12/06/23 0
--- NOTE | 2023-12-09 14:58 | PM.IMPN ---
Progress Note: A&P Assessment and Plan (1) Choledocholithiasis: Code(s): K80.50 - Calculus of bile duct without cholangitis or cholecystitis without obstruction Status: Acute Assessment and Plan: 12/09/23-patient is improving symptomatically and his labs are improving. Liver function tests, lipase, and white blood cell count are improving. Incisions clean and dry. Adding incentive spirometer due to shallow breaths. Patient is walking the halls. Lovenox for DVT prophylaxis 12/08/23 Patient is postop day 1 from a laparoscopic fenestrated subtotal cholecystectomy General surgery following GI following Patient is hoarse and wheezing, currently on room air, we will get an incentive spirometer Encourage patient to be up ambulating in the halls in out of bed to the chair as much as possible Continue with pain control Abdomen is distended, tender, absent bowel sounds, not passing flatus Continue with a clear liquid diet today (2) Acute pancreatitis: Qualifiers: Acute pancreatitis complication: no infection or necrosis Pancreatitis type: biliary Qualified Code(s): K85.10 - Biliary acute pancreatitis without necrosis or infection Code(s): K85.90 - Acute pancreatitis without necrosis or infection, unspecified Status: Acute Assessment and Plan: Lipase within normal limits and patient eating a normal diet (3) Diabetes mellitus with hyperglycemia, without long-term current use of insulin: Qualifiers: Diabetes mellitus type: type 2 Qualified Code(s): E11.65 - Type 2 diabetes mellitus with hyperglycemia Code(s): E11.65 - Type 2 diabetes mellitus with hyperglycemia Status: Chronic Assessment and Plan: Last glucose 192 -continue sliding scale insulin -will restart home oral medications at discharge 12/08/23Blood sugars ranging 162-306 Last hemoglobin A1c on 11/15/2023 was 8.2 Continue Accu-Cheks AC and HS Currently on a clear liquid diet Glimepiride metformin and pioglitazone on hold Moderate dose SSI ordered hypoglycemic protocol in place (4) Essential (primary) hypertension: Code(s): I10 - Essential (primary) hypertension Status: Chronic Assessment and Plan: Last blood pressure 168/90 -continue amlodipine, irbesartan, and metoprolol (5) Transaminitis: Code(s): R74.01 - Elevation of levels of liver transaminase levels Status: Acute Assessment and Plan: Improving as stated above -recheck labs in the morning (6) AAA (abdominal aortic aneurysm): Onset Date: 11/2023 Qualifiers: Abdominal aorta location: infrarenal aorta Presence of rupture: without rupture Qualified Code(s): I71.43 - Infrarenal abdominal aortic aneurysm, without rupture Code(s): I71.40 - Abdominal aortic aneurysm, without rupture, unspecified Status: Acute Assessment and Plan: CTA showed 3.3 cm infrarenal abdominal aortic aneurysm Will need outpatient follow-up for this (7) Hyperlipidemia: Code(s): E78.5 - Hyperlipidemia, unspecified Status: Acute Assessment and Plan: Continue atorvastatin (8) History of thyroid irradiation: Code(s): Z92.3 - Personal history of irradiation Status: Acute Assessment and Plan: Continue Synthroid Time Spent With Patient Time with patient: 25 - 35 minutes Subjective Date/time seen: 12/09/23 14:58 Interval history: Pt is a 63-year-old male here for choledocholithiasis and pancreatitis. Patient states he is doing well and his pain is improving. He denies shortness of breath, chest pain, fevers, nausea or vomiting. He is walking the halls. He is passing gas but having no bowel movements. He is on a regular diet and feeling okay. Review of Systems Review of Systems: All systems reviewed & are unremarkable except as noted in HPI and below Exam Narrative: General: Well
[2023-12-09 16:37] LABS: Glucose Point of Care 308 mg/dl (65-105)
[2023-12-09] MEDS: INSULIN ASPART (*BKC) 100 UNITS/ML SUB-Q (17:31)
[2023-12-09] MEDS: oxyCODONE/ACETAMINOPHEN (*CRX) 10-325 MG TABLET 1 TAB PO (20:32)
[2023-12-09 21:01] LABS: Glucose Point of Care 237 mg/dl (65-105)
[2023-12-10] MEDS: HYDROmorphone HCL INJ (*CRX) 1 MG/ML SYR IV PUSH (02:25)
[2023-12-10] MEDS: oxyCODONE/ACETAMINOPHEN (*CRX) 10-325 MG TABLET 1 TAB PO ×2 (05:42→13:36)
[2023-12-10] MEDS: LEVOTHYROXINE SODIUM 112 MCG TABLET PO (05:42)
[2023-12-10] MEDS: LEVOTHYROXINE SODIUM 25 MCG TABLET PO (05:42)
[2023-12-10 06:14] VITALS: BP 180/80; PULSE 88; RESP 20; TEMP 36.5; O2SAT 97
[2023-12-10 06:47] LABS: Hematocrit 43.2 % (42.0-52.0); Hemoglobin 13.9 g/dL (14.0-18.0); Mean Corpuscular HGB Conc 32.2 g/dl (32-36); Mean Corpuscular Hemoglobin 29.4 pg (26-34); Mean Corpuscular Volume 91.5 fl (80-100); Mean Platelet Volume 10.3 fl (7.4-10.4); Platelet Count Result 400 k/mm3 (150-375); Red Blood Count 4.72 M/mm3 (4.6-6.20); Red Cell Distribution Width 15.1 % (11.5-14.5); White Blood Count 11.3 K/mm3 (4.5-10.0)
[2023-12-10 07:07] LABS: Alanine Aminotransferase 111 U/L (6-50); Albumin Level 3.8 g/dL (3.5-5.1); Alkaline Phosphatase 222 U/L (38-126); Anion Gap 7 mmol/L (4-12); Aspartate Amino Transferase 64 U/L (17-59); Bilirubin,Total 3.1 mg/dL (0.2-1.3); Blood Urea Nitrogen 12 mg/dL (9-20); Calcium 8.8 mg/dL (8.4-10.2); Carbon Dioxide 24 mmol/L (22-30); Chloride 104 mmol/L (98-107); Estimated CRCL calculation 89 ml/min; Estimated Glomerular Filt Rate > 60; Glucose 192 mg/dL (65-110); Potassium 4.1 mmol/L (3.4-5.0); Sodium 135 mmol/L (137-145)
[2023-12-10 07:44] LABS: Glucose Point of Care 187 mg/dl (65-105)
[2023-12-10 08:00] VITALS: BP 161/82; PULSE 83; RESP 18; TEMP 36.5; O2SAT 97
[2023-12-10 09:00] VITALS: BMI 29.2
[2023-12-10] MEDS: amLODIPine BESYLATE 5 MG TABLET 10 MG BY MOUTH (09:15)
[2023-12-10] MEDS: ATORVASTATIN 20 MG TABLET PO (09:15)
[2023-12-10 09:16] VITALS: PULSE 88
[2023-12-10] MEDS: ENOXAPARIN 40 MG/0.4 ML SYRINGE SUB-Q (09:16)
[2023-12-10] MEDS: IRBESARTAN 150 MG TABLET 300 MG PO (09:16)
[2023-12-10] MEDS: METOPROLOL SUCCINATE EXT REL 50 MG TABCR PO (09:16)
[2023-12-10 11:19] LABS: Glucose Point of Care 368 mg/dl (65-105)
[2023-12-10 11:56] VITALS: BP 125/74; PULSE 85; RESP 20; TEMP 36.5; O2SAT 97
--- NOTE | 2023-12-10 12:05 | PM.DS ---
DS: Admitting Diagnosis Discharge Date 12/10/23 Admitting Diagnosis Choledocholithiasis Acute pancreatitis Abdominal aortic aneurysm Diabetes mellitus with hyperglycemia Essential hypertension DS: Discharge Diagnosis Discharge Diagnosis (1) Choledocholithiasis: Code(s): K80.50 - Calculus of bile duct without cholangitis or cholecystitis without obstruction Status: Acute (2) Acute pancreatitis: Qualifiers: Acute pancreatitis complication: no infection or necrosis Pancreatitis type: biliary Qualified Code(s): K85.10 - Biliary acute pancreatitis without necrosis or infection Code(s): K85.90 - Acute pancreatitis without necrosis or infection, unspecified Status: Acute (3) Diabetes mellitus with hyperglycemia, without long-term current use of insulin: Qualifiers: Diabetes mellitus type: type 2 Qualified Code(s): E11.65 - Type 2 diabetes mellitus with hyperglycemia Code(s): E11.65 - Type 2 diabetes mellitus with hyperglycemia Status: Chronic (4) Essential (primary) hypertension: Code(s): I10 - Essential (primary) hypertension Status: Chronic (5) Transaminitis: Code(s): R74.01 - Elevation of levels of liver transaminase levels Status: Acute (6) AAA (abdominal aortic aneurysm): Onset Date: 11/2023 Qualifiers: Abdominal aorta location: infrarenal aorta Presence of rupture: without rupture Qualified Code(s): I71.43 - Infrarenal abdominal aortic aneurysm, without rupture Code(s): I71.40 - Abdominal aortic aneurysm, without rupture, unspecified Status: Acute (7) Hyperlipidemia: Code(s): E78.5 - Hyperlipidemia, unspecified Status: Acute (8) History of thyroid irradiation: Code(s): Z92.3 - Personal history of irradiation Status: Acute DS: Summary Hospital Course Reason for hospitalization: Choledocholithiasis Acute pancreatitis Abdominal aortic aneurysm Diabetes mellitus with hyperglycemia Essential hypertension Hospital Course: 12/08/23: This is a 63-year-old male who presented to the hospital on 12/06/2023 with complaints of abdominal pain and abnormal outpatient CT.? Outpatient CT of the abdomen pelvis showed a 7 mm stone in the distal common bile duct along with cholelithiasis, 3.3 cm infrarenal abdominal aortic aneurysm and small to moderate fat containing left inguinal hernia.? Repeat CT of the abdomen pelvis on 12/05/2023 showed choledocholithiasis with dilated common bile duct and 7 mm hyperdense stone in the distal common bile duct, cholelithiasis, 3.3 cm abdominal aortic aneurysm, small to moderate fat containing left inguinal hernia.? ERCP was also performed showing similar findings and gallstones were removed.? He did have an elevated lipase of 3368 with elevated bilirubin and liver enzymes.? GI and General surgery were consulted.? General surgery took patient to the OR on 12/07/2023 and patient had a laparoscopic fenestrated subtotal cholecystectomy performed.? He was given a dose of cefazolin yesterday by General surgery. On examination today patient is alert oriented x4 lying in the bed.? Patient denies any fever, chills, nausea, vomiting, diarrhea, chest pain, shortness a breath.? Patient endorses abdominal pain with deep breathing.? His abdomen is distended, bowel sounds are absent, he is not passing flatus however he states that he has been burping he has a JOSE on the right with serosanguineous drainage, lap sites with surgical glue open air.? Patient is hoarse with notable wheezing and throughout all lung saldivar.? He is currently on room air.? We will get an incentive spirometer for deep breathing exercises and I encouraged patient to ambulate in the halls and be up out of the bed as much as possible.? Labs today show a white blood cell count of 15.1, hemoglobin 13.1, sodium 136, blood sugar ranging 172-306, total bilirubin 3.2, AST 127, ALT 169, alk-phos 231.? Bilirubin and liver enzymes
[2023-12-10] MEDS: polyethylene glycoL 3350 17 GM POWD.PACK PO (12:56)
[2023-12-10] MEDS: INSULIN ASPART (*BKC) 100 UNITS/ML SUB-Q (12:57)
--- NOTE | 2023-12-10 13:17 | WPDGIPROGNO ---
Progress Note: A&P Assessment and Plan (1) Choledocholithiasis: Code(s): K80.50 - Calculus of bile duct without cholangitis or cholecystitis without obstruction Status: Acute Assessment and Plan: ercp with removal of small stones, cytology from distal bile duct negative for malignancy s/p lap vera tolerating diet and going home today bili down to 3, repeat lft in 2 weeks (2) Gallstone pancreatitis: Code(s): K85.10 - Biliary acute pancreatitis without necrosis or infection Status: Acute Assessment and Plan: resolved (3) Obstructive jaundice: Code(s): K83.1 - Obstruction of bile duct Status: Acute Assessment and Plan: from cholecystitis/stone bile duct- treated with ercp and vera bili is coming down labs as outpatient cytology bile duct negative for malignancy (4) Elevated LFTs: Code(s): R79.89 - Other specified abnormal findings of blood chemistry Status: Acute Assessment and Plan: downtrending Subjective Date/time seen: 12/10/23 13:17 Interval history: he is tolerating diet, improving and feeling like going home today Review of Systems Review of Systems: All systems reviewed & are unremarkable except as noted in HPI and below Exam Const: General: comfortable and no acute distress Orientation/consciousness: patient oriented x3 HENMT: Face/Nose/Sinus: Normal nares present Eyes: Pupils: Equal, round and reactive pupils present Neck: Neck: supple Resp: Effort & Inspection: normal respiratory effort Cardio: Rate: regular rate GI: Inspection: no abdominal wall ecchymosis, non-distended and incision (Dry and healing) GI Palp: Yes Soft to palpation, No Guarding due to palpation present (GI) and No Rebound tenderness present Auscultation: normal bowel sounds Skin: General skin exam: no rashes or lesions noted Neuro: General: patient oriented x3 and no focal motor deficits Extrem: General: no calf tenderness and no edema Psych: Affect: normal affect Insight: Good insight present (Psych) Judgement: Good judgement present (Psych) Objective Data Vital Signs Vital Signs: Vital Signs - 24 hr 12/09/23 16:00 12/09/23 20:00 12/09/23 20:00 Temperature 97.8 F 98.5 F Pulse Rate 83 83 Respiratory Rate 20 18 Blood Pressure 147/78 H 159/76 H Pulse Oximetry 100 96 Oxygen Delivery Room Air 12/10/23 06:14 12/10/23 09:16 12/10/23 08:00 Temperature 97.7 F 97.7 F Pulse Rate 88 88 83 Respiratory Rate 20 18 Blood Pressure 180/80 H 161/82 H Pulse Oximetry 97 97 Oxygen Delivery 12/10/23 08:00 12/10/23 11:56 Temperature 97.7 F Pulse Rate 85 Respiratory Rate 20 Blood Pressure 125/74 Pulse Oximetry 97 Oxygen Delivery Room Air Intake/Output Intake/Output: Intake & Output 12/07/23 12/08/23 12/09/23 12/10/23 23:59 23:59 23:59 23:59 Intake Total 3402.5 2080 1130 320 Output Total 2850 2138 550 Balance 552.5 -58 580 320 Meds/Results Medications: Active Medications Generic Name Dose Route Start Last Admin Trade Name Freq PRN Reason Stop Dose Admin Acetaminophen 500 mg 12/09/23 09:16 Acetaminophen 500 Mg Tablet PO Q6H PRN Pain Rated 1-3 Amlodipine Besylate 10 mg 12/08/23 12:15 12/10/23 09:15 Amlodipine Besylate 5 Mg Tablet BY MOUTH 10 mg QAM ARACELI Administration Atorvastatin Calcium 20 mg 12/08/23 12:15 12/10/23 09:15 Atorvastatin 20 Mg Tablet PO 20 mg DAILY ARACELI Administration Benzocaine 1 lozenge 12/06/23 20:23 Benzocaine/Menthol (*Bkc) 18 Ea Lozenge PO PRN PRN Sore Throat Dextrose 12.5 gm 12/06/23 01:44 Dextrose 50% 25 Gm/50 Ml Syringe IV PUSH PRN PRN Hypoglycemia Protocol Enoxaparin Sodium 40 mg 12/10/23 09:00 12/10/23 09:16 Enoxaparin 40 Mg/0.4 Ml Syringe SUB-Q 40 mg DAILY ARACELI Administration Glucagon 1 mg 12/06/23 01:44 Glucagon For Inj 1 Mg Vial IM PRN PRN Hypoglycemia Pr
--- NOTE | 2023-12-10 15:52 | PC.NURSE ---
surgery [employer]IM[employer]ER removed JOSE drain and suture at bedside. site was then dressed with gauze and medipore tape.
--- NOTE | 2023-12-10 16:18 | PM.PNGS ---
Progress Note: A&P Assessment and Plan (1) Choledocholithiasis with acute cholecystitis with obstruction: Code(s): K80.43 - Calculus of bile duct with acute cholecystitis with obstruction Status: Acute Assessment and Plan: Doing well and surgically stable for discharge. JOSE drain with no evidence of a bile leak. JOSE removed at the bedside today. Follow-up with Dr. Tanner in 2 weeks. Continue low fat diet x 2 weeks. Discussed all discharge instructions with the patient and his . Plan I have discussed the patient's case and plan of care with Dr. Tanner. Subjective Subjective Date/Time Seen: 12/10/23 15:18 Post Op day: 3 (laparoscopic fenestrated subtotal cholecystectomy) Patient reports: no new complaints, tolerating a regular diet, flatus, bowel movement and afebrile Interval history: Chart reviewed since last seen. Patient did well through the weekend and his diet has been advanced to solids. No nausea or vomiting. He is tolerating activity well. His pain is currently controlled with oral analgesics. No other complaints at this time. Minimal output from and JOSE drain over the past few days. Discussed with Dr. Tanner who recommended removing the JSOE drain if there is no bilious output. Exam Const: General: comfortable and no acute distress GI: Inspection: non-distended and incision (incisions dry and intact) GI Palp: Yes Soft to palpation, Yes Tenderness to palpation present (GI) (incisional) and No Guarding due to palpation present (GI) Auscultation: normal bowel sounds Other: JOSE drain with serosanguineous drainage. Suture and JOSE drain removed at the bedside. Gauze dressing applied. Objective Data Vital Signs Vital Signs: Vital Signs - 24 hr 12/09/23 20:00 12/09/23 20:00 12/10/23 06:14 Temperature 98.5 F 97.7 F Pulse Rate 83 88 Respiratory Rate 18 20 Blood Pressure 159/76 H 180/80 H Pulse Oximetry 96 97 Oxygen Delivery Room Air 12/10/23 09:16 12/10/23 08:00 12/10/23 08:00 Temperature 97.7 F Pulse Rate 88 83 Respiratory Rate 18 Blood Pressure 161/82 H Pulse Oximetry 97 Oxygen Delivery Room Air 12/10/23 11:56 Temperature 97.7 F Pulse Rate 85 Respiratory Rate 20 Blood Pressure 125/74 Pulse Oximetry 97 Oxygen Delivery Intake/Output Intake/Output: Intake & Output 12/07/23 12/08/23 12/09/23 12/10/23 23:59 23:59 23:59 23:59 Intake Total 3402.5 2080 1130 990 Output Total 2850 2138 550 Balance 552.5 -58 580 990 Meds/Results Radiology Results: ITS Impressions Endo Retro Cholangiopancreatogram 12/06/23 15:34 IMPRESSION: 1. Dilated common duct. Please refer to the ERCP procedure note for additional details. Labs Labs: Laboratory Results - last 24 hr 12/09/23 12/09/23 12/10/23 16:31 20:24 06:28 WBC 11.3 H RBC 4.72 Hgb 13.9 L Hct 43.2 MCV 91.5 MCH 29.4 MCHC 32.2 RDW 15.1 H Plt Count 400 H MPV 10.3 Sodium 135 L Potassium 4.1 Chloride 104 Carbon Dioxide 24 Anion Gap 7 BUN 12 Creatinine 0.70 Estim Creat Clear Calc 89 Estimated GFR > 60 Glucose 192 H POC Capillary Glucose 308 H 237 H Calcium 8.8 Total Bilirubin 3.1 H AST 64 H ALT 111 H Alkaline Phosphatase 222 H Total Protein 7.0 Albumin 3.8 12/10/23 12/10/23 07:30 11:11 WBC RBC Hgb Hct MCV MCH MCHC RDW Plt Count MPV Sodium Potassium Chloride Carbon Dioxide Anion Gap BUN Creatinine Estim Creat Clear Calc Estimated GFR Glucose POC Capillary Glucose 187 H 368 H Calcium Total Bilirubin AST ALT Alkaline Phosphatase Total Protein Albumin
== END 2023-12-10 15:30 | disposition home or self-care (01) | DRG 418 ==
LOC: ANHED 20:49 → ANH3MEDSUR 20:55
PROVIDERS: Internal Medicine; Internal Medicine Gastroenterology; Nurse Practitioner Family; Physician Assistant; Surgery; Admitting Provider Hospitalist; Emergency Provider Emergency Medicine; PCP Family Medicine Adolescent Medicine; Visit Provider Nurse Practitioner Acute Care
PROC: 0FC98ZZ Extirpation of Matter from Common Bile Duct, Via Natural or Artificial Opening Endoscopic (ICD-10-PCS; CPT 43260; principal; 2023-12-06 12:45)
PROC: 0FT44ZZ Resection of Gallbladder, Percutaneous Endoscopic Approach (ICD-10-PCS; CPT 47562; principal; 2023-12-07 17:00)
DX: K85.10 Biliary acute pancreatitis without necrosis or infection (principal); K80.64 Calculus of gallbladder and bile duct with chronic cholecystitis without obstruction; I10 Essential (primary) hypertension; E78.5 Hyperlipidemia, unspecified; E53.8 Deficiency of other specified B group vitamins; E11.319 Type 2 diabetes mellitus with unspecified diabetic retinopathy without macular edema; K57.30 Diverticulosis of large intestine without perforation or abscess without bleeding; K21.9 Gastro-esophageal reflux disease without esophagitis; E89.0 Postprocedural hypothyroidism; I71.40 Abdominal aortic aneurysm, without rupture, unspecified; E11.65 Type 2 diabetes mellitus with hyperglycemia; K40.90 Unilateral inguinal hernia, without obstruction or gangrene, not specified as recurrent; Z85.72 Personal history of non-Hodgkin lymphomas; Z92.3 Personal history of irradiation; Z87.891 Personal history of nicotine dependence
CPT/HCPCS: 36415; 74329; 80053; 81001; 82948; 83605; 83690; 85025; 85027; 85610; 88108; 88304; 88305; 99285; A9270; G0378; J0330; J0360; J0650; J0690; J1100; J1170; J1650; J1815; J1940; J2250; J2405; J2704; J3010; J7030; J7120; Q9966

== ENCOUNTER 2024-06-10 14:22 | Outpatient (CLI) | payer OTHER, SELFPAY ==
[2024-06-10 15:24] LABS: Hematocrit 40.7 % (42.0-52.0); Hemoglobin 13.7 g/dL (14.0-18.0)
--- NOTE | 2024-06-10 15:30 | ECG_ITS ---
Test Date: 2024-06-10 14:49:22 Measurements Intervals [place] Rate: 71 P: 60 TX: 208 QRS: -44 QRSD: 105 T: 40 QT: 366 QTc: 398 Interpretive Statements SINUS RHYTHM LEFT AXIS DEVIATION VOLTAGE CRITERIA FOR LVH POOR R WAVE PROGRESSION BASELINE ARTIFACT- I, II, III, AVR, AVL, AVF BORDERLINE ECG No previous ECG available for comparison Electronically Signed On 06-10-2024 14:54:11 FUEL TECHNICIAN by Austen Craig D.O.
[2024-06-10 16:00] LABS: Anion Gap 7 mmol/L (4-12); Blood Urea Nitrogen 16 mg/dL (9-20); Calcium 8.9 mg/dL (8.4-10.2); Carbon Dioxide 27 mmol/L (22-30); Chloride 104 mmol/L (98-107); Estimated Glomerular Filt Rate > 60; Glucose 174 mg/dL (65-110); Potassium 4.2 mmol/L (3.4-5.0); Sodium 138 mmol/L (137-145)
== END 2024-06-10 14:23 | disposition home or self-care (01) ==
LOC: ANHSURGERY 14:26
PROVIDERS: Anesthesiology; PCP Family Medicine Adolescent Medicine; Visit Provider Surgery
DX: E78.5 Hyperlipidemia, unspecified (principal); K40.90 Unilateral inguinal hernia, without obstruction or gangrene, not specified as recurrent; E11.65 Type 2 diabetes mellitus with hyperglycemia; D51.0 Vitamin B12 deficiency anemia due to intrinsic factor deficiency; Z01.818 Encounter for other preprocedural examination
CPT/HCPCS: 36415; 80048; 85014; 85018; 86850; 86900; 86901; 93005

== ENCOUNTER 2024-06-13 04:28 | Day surgery (SDC) | payer OTHER, SELFPAY ==
[2024-06-10 09:16] VITALS: BMI 30.4
--- NOTE | 2024-06-10 09:21 | PC.NURSE ---
Report to the Outpatient Waiting Room, entrance under the green pavilion located off [facility], at time _0900_ on date _[id number]_. Planned Procedure Time: _1100_.? Time changes happen often and if your time is changed the preop area will call you the afternoon before. - You and your visitor will be asked to self-screen and do not enter if you have any COVID symptoms. Please call surgeon if you need to reschedule. - A mask is optional within the hospital at this time. Patients may have clear liquids (water, carbonated beverages, clear teas, apple juice) until 3 hours prior to surgery with a maximum of 20 ounces. - No food from midnight until time of surgery and no smoking Take only the following medications with a SIP of water on the morning of surgery: ___Amlodipine, Levothyroxine and Metoprolol____ DO NOT STOP ANY OF YOUR OTHER PRESCRIPTION MEDICATIONS PRIOR TO SURGERY EXCEPT THE FOLLOWING Medications to discontinue per physician ___Iron tab__ Date to take last dose___Stop today. Please no make-up, nail romanian, hairspray, perfume, deodorant, or body powder the day of surgery.? No jewelry (including any body piercings) or valuables the day of surgery, leave them at home.? Please take a shower or bath the night before, or the morning of, surgery with an antibacterial soap.? Wear comfortable, loose fitting clothing.? - Jewelry must be removed prior to entering the operating room.? Rings and piercings that are not removed may be cut off. - The hospital will not accept responsibility for valuables.? - Please leave all valuables, including medications, at home the day of surgery. If you are going home after surgery, a licensed trash truck driver must drive you home.? - NO public transportation without another adult if you receive anesthesia. - We recommend that an adult stay with you for 24 hours following discharge. - We also recommend that you do not drive, make important decision, drink alcoholic beverages, or take any drugs that were not prescribed by your health care provider for at least 24 hours after your discharge time. Follow any additional instructions given to you from your surgeon. Telephone instructions given to __Vinod__and asked if any additional questions and then verbalized understanding. Patient advised to call surgeon office or pre surgery nurse liaison [phone] if any additional questions.
[2024-06-13] VITALS (9 sets, daily range): BP systolic 109–166; BP diastolic 56–82; PULSE 75–85; RESP 13–18; TEMP 36.1; O2SAT 96–99
[2024-06-13] MEDS: ACETAMINOPHEN 500 MG TABLET 1000 MG PO (09:25)
[2024-06-13] MEDS: LACTATED RINGERS 1,000 ML 30 ML IV CONT ×3 (09:30→14:20)
[2024-06-13] MEDS: KETOROLAC 15 MG/ML VIAL (*BKC) IV PUSH (09:35)
[2024-06-13 10:12] LABS: Glucose Point of Care 124 mg/dl (65-105)
--- NOTE | 2024-06-13 10:37 | P.HP_ITS ---
H&P: HPI History of Present Illness Date/Time: 06/13/24 10:37 Chief Complaint: Left inguinal hernia, reducible Narrative: Danny is a 63 y/o male who presents to the office for an evaluation of a left inguinal hernia that was discovered incidentally when patient presented to [facility] on 12/05/23. Patient underwent a laparoscopic cholecystectomy while admitted. CT scan done on 12/05/23 revealed a small to moderate fat-containing left inguinal hernia. Patient denies any pain or palpable bulge. He is having regular BM's and urine output. Patient also has an abdominal aneurysm measuring 3.3cm. Patient PCP will manage this. Review of Systems Review of Systems: The remainder of the review of systems to include constitutional, HEENT, cardiovascular, respiratory, GI, , integumentary, musculoskeletal, endocrine, immunologic, hematologic, psychiatric, and neurologic are all negative except for which is mentioned above in the HPI. [facility] Past Medical History Medical History B12 deficiency With associated pernicious anemia Diabetic retinopathy Diverticulosis Essential (primary) hypertension Gallstone pancreatitis GERD (gastroesophageal reflux disease) History of thyroid irradiation 2001 Thyroid lymphoma Hyperlipidemia Internal hemorrhoids Left inguinal hernia Lymphoma of thyroid gland Obstructive jaundice Postablative hypothyroidism Rosacea Surgical History Surgical History History of colonoscopy with polypectomy (2021) History of esophagogastroduodenoscopy (2021) History of laparoscopic cholecystectomy (11/2023) fenestrated subtotal cholecystectomy History of thyroidectomy Hx of cholecystectomy Other (Severe chronic cholecystitis secondary to cholelithiasis, recent history choledocholithiasis and obstructive jaundice) 12/07/23 Family History Family History Father Hypertension Other Diabetes mellitus Pernicious anemia Social History Social History Social History: He lives in [facility] with his spouse. He has 1 daughter who is receiving her PhD. He smoked for about 31 years but quit smoking about 25 years ago. At the most he smoked 1.5 packs per day. He denies any significant alcohol use or illicit substance use. He is employed as a swimming pool maintenance. Code status: Full code Surrogate decision maker: Katarina (spouse) Smoking packs per day: 1 Smoking cigarettes per day: 20.0 Years smoked: 22 Smoking pack-years: 22.00 Smoking status: Never smoker Tobacco type: cigarettes Second hand tobacco smoke exposure: No Smoking end date: 06/10/99 Alcohol intake: never Substance use: never Substance use type: does not use Do You Feel Safe in your Home?: Yes Lack of Transportation: No Lack of Food: Never True Current Housing: I Have Housing Concerned About Future Housing: No Difficulty Paying Gas/Electric Bills: No Difficulty Paying for Meds: No Currently Unemployed: No Education: High School Diploma/GED Difficulty w/ Childcare or Family Care: No Living arrangements: with family Occupation/Education: occupation Gender identity (if verbalized by the patient): Male Sexual Orientation (if Verbalized by the Patient): Straight or Heterosexual Spiritual care concerns: No Agree to blood products: Yes Meds Home Medications and Allergies Home Medications Medication Instructions Recorded Confirmed Type levothyroxine 137 mcg tablet 137 mcg PO DAILY #90 tabs 08/26/23 06/13/24 Rx atorvastatin 20 mg tablet 20 mg PO DAILY #90 tabs 08/27/23 06/13/24 Rx glimepiride 2 mg tablet 2 mg PO BID #180 tabs 08/27/23 06/13/24 Rx irbesartan 300 mg tablet 300 mg PO DAILY #90 tabs 08/27/23 06/13/24 Rx metoprolol succinate 50 mg 50 mg PO DAILY #90 tabs 08/27/23 06/13/24 Rx tablet,extended release 24 hr metformin 500 mg tablet,extended 2,000 mg PO BID 12/05/23 06/13/24 History release 24 hr amlodipine 10 mg tablet 10 mg PO DAILY #90 tabs 12/18/23 06/13/24 Rx blood sugar diagnostic (OneTouch #100 ea 12/27/23 06/13/24 Rx Ultra Test strips) lancets 30 gauge (OneTouch Delica #100 ea 12/27/23 06/13/24 Rx Plus Lancet) cyanocobalamin (vitamin B-12) 1,000 mcg subcut .c6pluor #2 vials 02/15/2405/30 Rx 1,000 mcg/mL injection solution syringe with needle 3 mL 25 gauge #2 ea 02/15/24 06/13/24 Rx x 1 (BD Luer-Adalberto Syringe) pioglitazone 45 mg tablet 45 mg PO DAILY #90 tabs 05/19/24 06/13/24 Rx ferrous sulfate 325 mg (65 mg 650 mg PO DAILY 06/10/24 06/13/24 History iron) tablet Allergies Allergy/AdvReac Type Severity Reaction Status Date / Time No Known Allergies Allergy Mild Verified 06/13/24 09:48 Vital Signs Vital Signs - 24 hr 06/13/24 09:30 Temperature 36.1 C L Pulse Rate 78 Respiratory Rate 18 Blood Pressure 166/70 H Pulse Oximetry 99 Oxygen Delivery Room Air Exam Const: General: comfortable and no acute distress HENMT: Ears: TM's normal bilaterally Face/Nose/Sinus: Normal nares present Mouth: Yes moist mucous membranes Eyes: General: appearance normal, both eyes and all related structures Sclera: sclerae normal Pupils: Equal, round and reactive pupils present EOM: EOMs intact bilaterally Neck: Neck: supple and no JVD Resp: Effort & Inspection: normal respiratory effort Auscultation: clear to auscultation bilaterally Cardio: Rate: regular rate Rhythm: regular rhythm GI: GI Palp: Yes Soft to palpation, No Firmness to palpation present (GI), No Tenderness to palpation present (GI), No Guarding due to palpation present (GI) and No Hernia present : Other: Bilateral descended testicles, no masses. No right inguinal hernia, small reducible left inguinal hernia. Skin: General skin exam: normal color and no rashes or lesions noted Neuro: General: gait normal Speech: normal speech Motor exam (neuro): 5/5 motor strength present throughout and Motor abnormalites present Sensory Exam: normal sensation Extrem: General: normal to inspection Psych: Mental Status: mental status grossly normal Affect: normal affect Assessment and Plan Assessment and plan (1) Reducible left inguinal hernia: Code(s): K40.90 - Unilateral inguinal hernia, without obstruction or gangrene, not specified as recurrent Status: Acute Assessment and Plan: I have reviewed patient chart prior to patient visit. I have recommended a laparoscopic left inguinal hernia repair with mesh, Da Eder assisted, to be done under general anesthesia as an outpatient. The procedure was discussed in detail including the use of mesh, general description, and usual course of recovery. Risks of recurrence, infection, postop bleeding, prolonged postop pain, possible need to return to surgery were discussed as well. All questions were answered. Patient would like to proceed. Patient to follow up 2 weeks postoperatively.
--- NOTE | 2024-06-13 10:40 | WPDHPUPDATE1 ---
History and Physical Update Update Date/Time: 06/13/24 10:40 History and Physical has been reviewed, including an updated exam of the patient. There are NO changes in the patient's condition. Risks, benefits, and alternatives have been discussed and questions answered. Patient agrees to proceed with procedure.
--- NOTE | 2024-06-13 10:44 | P.PNAN_ITS ---
Anes - Initial Pre Proc Eval Procedure: Operation Date: 06/13/24 11:00 Proposed Procedures p Robotic Assisted Laparoscopic Left Inguinal Hernia Repair with Mesh - Salvador Tanner MD Date/Time: 06/13/24 10:44 Surgeon: Salvador Tanner MD Pre Op Diagnosis: Left Inguinal Hernia Patient Data Age: 64 Gender: M Height: 1.73 m Weight: 93.8 kg Last Vital Signs Temp 96.9 F L 06/13/24 09:30 Pulse 78 06/13/24 09:30 Resp 18 06/13/24 09:30 BP 166/70 H 06/13/24 09:30 Pulse Ox 99 06/13/24 09:30 O2 Del Method Room Air 06/13/24 09:30 Allergies Allergy/AdvReac Type Severity Reaction Status Date / Time No Known Allergies Allergy Mild Verified 06/13/24 09:48 Home Medications Medication Instructions Recorded Confirmed Type levothyroxine 137 mcg tablet 137 mcg PO DAILY #90 tabs 08/26/23 06/13/24 Rx atorvastatin 20 mg tablet 20 mg PO DAILY #90 tabs 08/27/23 06/13/24 Rx glimepiride 2 mg tablet 2 mg PO BID #180 tabs 08/27/23 06/13/24 Rx irbesartan 300 mg tablet 300 mg PO DAILY #90 tabs 08/27/23 06/13/24 Rx metoprolol succinate 50 mg 50 mg PO DAILY #90 tabs 08/27/23 06/13/24 Rx tablet,extended release 24 hr metformin 500 mg tablet,extended 2,000 mg PO BID 12/05/23 06/13/24 History release 24 hr amlodipine 10 mg tablet 10 mg PO DAILY #90 tabs 12/18/23 06/13/24 Rx blood sugar diagnostic (OneTouch #100 ea 12/27/23 06/13/24 Rx Ultra Test strips) lancets 30 gauge (OneTouch Delica #100 ea 12/27/23 06/13/24 Rx Plus Lancet) cyanocobalamin (vitamin B-12) 1,000 mcg subcut .q1edkya #2 vials 02/15/24 06/13/24 Rx 1,000 mcg/mL injection solution syringe with needle 3 mL 25 gauge #2 ea 02/15/24 06/13/24 Rx x 1 (BD Luer-Adalberto Syringe) pioglitazone 45 mg tablet 45 mg PO DAILY #90 tabs 05/19/24 06/13/24 Rx ferrous sulfate 325 mg (65 mg 650 mg PO DAILY 06/10/24 06/13/24 History iron) tablet Laboratory Tests 06/13/24 10:08 POC Capillary Glucose 124 H mg/dl (65-105) Patient hx anesthesia problems: none Family hx anesthesia problems: none Results Review: All pre-operative results and documents have been reviewed as part of the pre- operative evaluation. [facility] Past Medical History Medical History B12 deficiency With associated pernicious anemia Diabetic retinopathy Diverticulosis Essential (primary) hypertension Gallstone pancreatitis GERD (gastroesophageal reflux disease) History of thyroid irradiation 2002 Thyroid lymphoma Hyperlipidemia Internal hemorrhoids Left inguinal hernia Lymphoma of thyroid gland Obstructive jaundice Postablative hypothyroidism Rosacea Surgical History Surgical History History of colonoscopy with polypectomy (2021) History of esophagogastroduodenoscopy (2021) History of laparoscopic cholecystectomy (11/2023) fenestrated subtotal cholecystectomy History of thyroidectomy Hx of cholecystectomy Other (Severe chronic cholecystitis secondary to cholelithiasis, recent history choledocholithiasis and obstructive jaundice) 12/07/23 Family History Family History Father Hypertension Other Diabetes mellitus Pernicious anemia Social History Social History Social History: He lives in [facility] with his spouse. He has 1 daughter who is receiving her PhD. He smoked for about 31 years but quit smoking about 25 years ago. At the most he smoked 1.5 packs per day. He denies any significant alcohol use or illicit substance use. He is employed as a maintenance analyst. Code status: Full code Surrogate decision maker: Katarina (spouse) Smoking packs per day: 1 Smoking cigarettes per day: 20.0 Years smoked: 22 Smoking pack-years: 22.00 Smoking status: Never smoker Tobacco type: cigarettes Second hand tobacco smoke exposure: No Smoking end date: 06/10/99 Alcohol intake: never Substance use: never Substance use type: does not use Do You Feel Safe in your Home?: Yes Lack of Transportation: No Lack of Food: Never True Current Housing: I Have Housing Concerned About Future Housing: No Difficulty Paying Gas/Electric Bills: No Difficulty Paying for Meds: No Currently Unemployed: No Education: High School Diploma/GED Difficulty w/ Childcare or Family Care: No Living arrangements: with family Occupation/Education: occupation Gender identity (if verbalized by the patient): Male Sexual Orientation (if Verbalized by the Patient): Straight or Heterosexual Spiritual care concerns: No Agree to blood products: Yes Anes - Eval Final PreProcedure Day of Procedure 06/13/24 10:44 Patient weight: normal Heart: regular rate and rhythm Lungs: clear to auscultation Airway: Mallampati scale Neurological: alert and oriented Last oral intake: >/= 8 hours ASA classification: III Emergent: no Anesthetic plan: proceed Anesthesia type and monitoring: general ETT and standard monitoring Results Review: All pre-operative results and documents have been reviewed as part of the pre- operative evaluation. Informed Consent: The patient's anesthetic plan and its attendant risks and benefits were dis cussed with the patient/family/POA. Questions were solicited and answers provided to the satisfaction of the patient/family/POA.
[2024-06-13] MEDS: ceFAZolin 2 GM/D5W 50 ML 2 GM/50 ML BAG IVPB (10:53)
[2024-06-13] MEDS: LIDO 1%/EPINEPHRINE 1:100,000 20 ML VIAL 30 ML INFILTRATE (11:49)
[2024-06-13] MEDS: BUPivacaine HCL 0.5% PF 30 ML VIAL INFILTRATE (11:49)
--- NOTE | 2024-06-13 13:45 | P.OP_ITS ---
Procedure Note - Detailed Date of Procedure 06/13/24 Pre-op Diagnosis Left Inguinal Hernia Post-op Diagnosis Other (Indirect reducible left inguinal hernia) Procedure Performed Robotic assisted laparoscopic left inguinal hernia repair with Bard 3D mid weight mesh. Surgeon Salvador Tanner MD [employer] Instructor RONY Moreno Anesthesia General Indications Patient is a 64-year-old gentleman who has a left inguinal hernia seen on CT scan which has fatty tissue within the hernia sac. He is relatively asymptomatic but having some minor symptoms from the hernia would like to have it repaired. Presents now for robotic assisted laparoscopic left inguinal hernia repair with mesh. Findings Patient indirect left inguinal hernia. Upon dissection of the internal ring the patient very large cord lipoma. No direct defect was seen. Description of Procedure After informed consent was obtained patient was brought to the operating room where he was placed supine position and general endotracheal anesthesia was administered. The abdomen was then prepped and draped usual sterile fashion as was the bilateral groin regions. A time-out was then performed correctly identifying the patient as well as procedure to be performed. He was given perioperative IV antibiotics and site marking was confirmed. I then entered the abdomen left upper quadrant utilizing a 5mm Optiview port. Once inside the abdomen insufflated to adequate pneumoperitoneum of 15mmHg of CO2. There were no adhesions around the area the umbilicus so then I placed the 8mm robotic trocar port in the periumbilical region as well as an 8mm robotic trocar port in left and right sides of the abdomen. The 5mm left upper quadrant trocar port was switched out to a 10mm laparoscopic trocar port for the bedside pastry assistant. The patient was then placed in a 15degree head-down Trendelenburg position. This exposed the left groin region. I evaluated the right groin and there is no evidence of a right inguinal hernia. In the left groin the patient appeared to have an indirect inguinal hernia on the left groin region. The [place] robot was then brought to the patient's bedside and the arms were docked to the robotic ports. Robotic instruments were then advanced into the abdomen under direct visualization then scrubbed out of the procedure to perform the dissection robotically at the console. I started by making a preperitoneal flap starting anterior medial to the left anterior superior iliac spine and brain across the lower abdominal wall and extending it to pass the left side of the median umbilical ligament. Dissection was carried this preperitoneal plane with robotic hook dissection and extended down to the internal ring and then medially down to the pubic tubercle. Identified the inferior epigastric vessels and indeed this was a indirect left inguinal hernia. Medially I dissected down to the pubic tubercle and dissected past the suprapubic symphysis and down into the space of Retzius for couple of cm. Laterally I then dissected the hernia sac off of the cord structures preserving the vas deferens and testicular vessels without injury. I then dissected the peritoneal flap proximally up onto the psoas muscle. I then explored the cord identified a very large cord lipoma coming from the retroperitoneal fat. The cord lipoma was densely adhered to the cord structures and I carefully dissected the cord lipoma away from the cord structures. Once I had the cord lipoma dissected proximally up to the psoas muscle I then amputated the cord lipoma resected with electrocautery. The cord lipoma was left in the left lower quadrant the abdomen to be removed at the end the case. I then made sure the my proximal dissection of the peritoneal flap was adequate and that the edge of the mesh would not roll up with pulling up the flap. I then measured the dissected space and I felt that a 16x10 large Bard 3D mid weight mesh would be appropriate to cover the indirect inguinal defect as well as the direct space and the femoral space. The mesh was brought in through the bedside pastry assistant port site and placed into the dissected space. It covered the home myopectineal orifice easily. I then secured the mesh to the tissues around the pubic tubercle utilizing interrupted 2-0 Vicryl sutures. Laterally the the mesh was secured to the muscle fibers and anterior medial to the left anterior superior iliac spine. Additional suture was placed were potential direct space hernia would be found. At this point I then proceeded to make sure that the cord was hemostatic. I then pulled up the peritoneal flap in insure that the proximal edge of the mesh would not pull up with the closure of the flap. I then closed the peritoneal flap utilizing a running 2-0 absorbable V lock suture. When this was done the mesh was totally excluded from the intra- abdominal viscera. I then removed the large cord lipoma from the left lower quadrant the abdomen. A Endo-Catch bag was placed into the abdomen through the left upper quadrant trocar port site and the fatty tissue was placed into the Endo-Catch bag. The bag was closed and pulled up to the port site in the left upper quadrant. The Endo-Catch bag was removed from the abdomen and the cord lipoma within it was discarded. I then proceeded to scrub back in to the procedure and then closed the 8mm periumbilical trocar port and a 10mm left up per quadrant trocar port utilizing a suture Passer and placing transfascial 0 Vicryl sutures to close the defect. The abdomen was allowed to decompress and hemostasis in the port sites was good. I then closed all the port sites at the skin level utilizing a running subcuticular 4-0 Monocryl suture. The incisions were then cleaned and then skin glue was applied. The patient tolerated the procedure well no complications. All sponges, needles, and instrument counts were correct at the end procedure. EBL was _40__cc. The patient was awakened and taken to recovery in stable and satisfactory condition. Implants Large [id number] Bard 3D mid weight mesh oriented for left inguinal region Estimated Blood Loss 40 Drains No Packing No Pathology None sent Complications No immediate complications Condition Stable Disposition PACU [facility] Billing Surgery - Charge Forward: Surgery Billing
[2024-06-13 13:46] LABS: Glucose Point of Care 209 mg/dl (65-105)
--- NOTE | 2024-06-13 13:48 | SUR.PHASEI ---
Addendum entered by Oly Anne RN 06/13/24 13:51: NO INTERVENTIONS ORDERED. PATIENT TO RESUME DIABETIC MEDS ONCE HOME. Original Note: DR. MARTINEZ AWARE RE: BLOOD SUGAR 209.
[2024-06-13] MEDS: fentaNYL CITRATE INJ (*CRX) 100 MCG/2 ML VIAL 25 MCG IV PUSH ×2 (14:42→14:50)
[2024-06-13] MEDS: oxyCODONE HCL (*CRX) 5 MG TAB IR PO (15:10)
== END 2024-06-13 15:53 | disposition home or self-care (01) ==
PROVIDERS: PCP Family Medicine Adolescent Medicine; Visit Provider Surgery
PROC: 8E0Y4CZ Robotic Assisted Procedure of Lower Extremity, Percutaneous Endoscopic Approach (ICD-10-PCS; CPT 49650; principal; 2024-06-13 11:00)
DX: K40.90 Unilateral inguinal hernia, without obstruction or gangrene, not specified as recurrent (principal); D17.6 Benign lipomatous neoplasm of spermatic cord; I10 Essential (primary) hypertension; E78.5 Hyperlipidemia, unspecified; E11.319 Type 2 diabetes mellitus with unspecified diabetic retinopathy without macular edema; K21.9 Gastro-esophageal reflux disease without esophagitis; E53.8 Deficiency of other specified B group vitamins; E89.0 Postprocedural hypothyroidism; Z85.72 Personal history of non-Hodgkin lymphomas; Z87.891 Personal history of nicotine dependence; Z79.84 Long term (current) use of oral hypoglycemic drugs
CPT/HCPCS: 49650; S2900; 82948; A9270; C1781; J0690; J1100; J1885; J2003; J2004; J2250; J2405; J2704; J3010; J7120

== ENCOUNTER 2024-11-21 07:33 | Outpatient (CLI) | payer OTHER, SELFPAY ==
--- NOTE | ~2024-11-21 | US_ITS ---
EXAMINATION: US aorta DATE: 11/21/2024 9:15 CDT INDICATION: Infrarenal aneurysm TECHNIQUE: Grayscale, color Doppler, and pulsed Doppler images of the aorta and common iliac arteries were obtained. COMPARISON: CT examination of the abdomen and pelvis dated 12/04/2023 FINDINGS: Two separate fusiform aneurysmal dilatations are identified within the infrarenal abdominal aorta. Ju st distal to the takeoff of the bilateral renal arteries is designated aneurysm A. Just proximal to the bifurcation of the abdominal aorta is designated aneurysm B Aneurysm A measures 30.9 x 34.7 mm (compared with 30.4 x 33 mm, anterior to posterior by medial to la teral dimension, as measured on axial series, image #49). Aneurysm B measures 29.9 x 27.2 mm (compared with 29.5 x 26.5 mm, anterior to posterior and medial to lateral dimension as measured on axial series, image #60). The right common internal iliac artery measures 11.2 mm, with a peak systolic velocity measuring 378 cm/s. The left common iliac artery measures 11.7 mm, with a peak systolic velocity of 273 cm/s. IMPRESSION: Trace increase in size of the two separate fusiform aneurysms of the infrarenal abdominal aorta, as d etailed above. No significant aneurysmal dilatation of the bilateral internal iliac arteries. 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 Reviewed, dictated and finalized at location A. IMPRESSION: Trace increase in size of the two separate fusiform aneurysms of the infrarenal abdominal aorta, as detailed above. No significant aneurysmal dilatation of the bilateral internal iliac arteries. 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
--- OUTSIDE RECORDS SUMMARY | 2024-11-21 07:35 | XMS_ITS | Clinical Summary ---
Author Organization [facility] Address [address] [place] [address] Care Team Providers Care Enterprise Security Architect Name Role Phone Blaine Navarro MD Primary Care Provider [phone] Allergies No known active allergies Medications amLODIPine (NORVASC) 10 mg tablet Take 10 mg by mouth daily. 2 Active atorvastatin (LIPITOR) 20 mg tablet Take 20 mg by mouth daily. 2 Active glimepiride (AMARYL) 2 mg tablet Take 2 mg by mouth 2 times daily. 2 Active Irbesartan (AVAPRO) 300 mg tablet Take 300 mg by mouth daily. 2 Active levothyroxine 150 mcg tablet Take 150 mcg by mouth daily. 2 Active metFORMIN (GLUCOPHAGE XR) 500 mg Extended Release 24 hour tablet TAKE 4 TABLETS BY MOUTH EVERY DAY 2 Active metoprolol succinate (TOPROL XL) 50 mg Extended Release 24 hour tablet Take 50 mg by mouth daily. 2 Active pioglitazone (ACTOS) 30 mg tablet 3 Active Syringe with Needle, Disp, (BD Tuberculin Syringe) 1 mL 27 x 1/2 SyringeIndicati ons:Vitamin B12 deficiency anemia due to intrinsic factor deficiency USE 1 SYRINGE PER MONTH WITH B12 INJECTION 1 Each 6 4 Active cyanocobalamin (VITAMIN B-12) 1,000 mcg/mL SolutionIndicat ions:Vitamin B12 deficiency anemia due to intrinsic factor deficiency ADMINISTER 1 ML(1000 MCG) IN THE MUSCLE EVERY 2 WEEKS 1 mL 6 4 Active Active Problems Problem Noted Date Diagnosed Date Pancytopenia 01/31/2022 Vitamin B12 deficiency anemi a due to intrinsic factor deficiency 01/31/2022 Social History Tobacco Use Types Packs/Day Years Used Date Smoking Tobacco: Former Sex and Gender Information Value Date Recorded Sex Assigned at Not on file Legal Sex Male 10:14 AM CDT Gender Identity Not on file Sexual Orientation Not on file Last Filed Vital Signs Vital Sign Reading Time Taken Comments Blood Pressure 168/80 08/02/2023 3:22 PM POULTRY SERVICE TECHNICIAN Pulse 77 08/02/2023 3:20 PM POULTRY SERVICE TECHNICIAN Temperature 36.1 C (96.9 F) 08/02/2023 3:20 PM POULTRY SERVICE TECHNICIAN Respiratory Rate 12 08/02/2023 3:20 PM POULTRY SERVICE TECHNICIAN Oxygen Saturation 96% 08/02/2023 3:20 PM POULTRY SERVICE TECHNICIAN Inhaled Oxygen Concentration - - Weight 95.7 kg (211 lb) 08/02/2023 3:20 PM POULTRY SERVICE TECHNICIAN Height 172.7 cm (5' 8 ) 03/30/2022 3:26 PM CDT Body Mass Index 32.08 03/30/2022 3:26 PM CDT Plan of Treatment Health Maintenance Due Date Last Done Comments DTAP/TDAP/TD VACCINES (1 - Tdap) 1978 COLORECTAL SCREENING 2004 Colorectal Cancer Screening 2004 FIT-DNA Q 3 years 2004 FIT/FOBT Q 1 year 2004 Flex Sig/CT Colonography Q 5 years 2004 PNEUMOCOCCAL VACCINE 50+ YEARS (1 of 1 - PCV) 05/05/20 09 ZOSTER VACCINE (1 of 2) 2009 INFLUENZA VACCINE (#1) 2024 RSV VACCINE (60+ or ) (1 - 1-dose 75+ series) 2034 Insurance [facility] [id number] Care Teams Enterprise Security Architect Relationship Specialty Start Date End Date Blaine Navarro MD PCP - General Family Practice 01/31/22
== END 2024-11-21 07:34 | disposition home or self-care (01) ==
PROVIDERS: PCP Family Medicine Adolescent Medicine; Visit Provider Family Medicine Adolescent Medicine
DX: I71.43 Infrarenal abdominal aortic aneurysm, without rupture (principal)
CPT/HCPCS: 76775